=== PATIENT | female | born 1980 | race Caucasian/White ===

== ENCOUNTER 2016-03-15 08:23 | Emergency (ER) | payer OTHER ==
[~2016-03-15] VITALS: Ht 160 cm; Wt 136.1 kg
[2016-03-15 08:38] VITALS: BP 115/74
--- NOTE | 2016-03-15 08:57 | ED UPPER/LOWER EXTREMITY COMPL ---
History of Present Illness General Chief Complaint: Lower Extremity Problems Stated Complaint: LEG PAIN SWELLING AND PAIN Source: patient Exam Limitations: no limitations Vital Signs & Intake/Output Vital Signs & Intake/Output Vital Signs Date Time Temp Pulse Resp B/P Pulse O2 O2 Flow FiO2 Ox Delivery Rate 03/15 0838 97.4 82 20 115/74 98 Room Air Allergies Coded Allergies: NSAIDS (Non-Steroidal Anti-Inflamma (RASH 03/15/16) prochlorperazine (From COMPAZINE) ("DYSTONIC" 03/15/16) Reconcile Medications Albuterol Sulfate (Proair Hfa) 90 MCG HFA.AER.AD 2 PUF INH Q4-6 PRN PRN BREATHING (Reported) Budesonide/Formoterol Fumarate (Symbicort 160-4.5 Mcg Inhaler) 160 MCG-4.5 MCG/ ACTUATION HFA.AER.AD 2 PUF INH BID BREATHING PROBLEMS (Reported) Butalb/Acetaminophen/Caffeine (Dmqcwl-Jkigovbg-Gpll 50-325-40) 50 MG-325 MG-40 MG TABLET 1 TAB PO Q6-PRN PRN HEADACHE (Reported) Clonazepam 1 MG TABLET 1 TAB PO 4 TIMES/DAY ANXIETY (Reported) Cyclobenzaprine HCl 10 MG TABLET 1 TAB PO TID MUSCLE (Reported) Furosemide 20 MG TABLET 3 TAB PO DAILY WATER PILL (Reported) Lurasidone HCl (Latuda) 80 MG TABLET 1 TAB PO DAILY MENTAL HEALTH (Reported) Methadone Hydrochloride (Methadone HCl) 10 MG TABLET 4 TAB PO DAILY PAIN ( Reported) Methylprednisolone. (Medrol) 4 MG TAB.DS.PK 1 DP PO AD INFLAMMATION 6 on day 1 then reduce by one tablet daily until gone Metolazone 5 MG TABLET 1 TAB PO DAILY UNKNOWN (Reported) Nortriptyline HCl 25 MG CAPSULE 1 CAP PO BID UNKNOWN (Reported) Pantoprazole Sodium 40 MG TABLET.DR 1 TAB PO DAILY GI (Reported) Potassium Chloride 20 MEQ TAB.ER.PRT 1 TAB PO DAILY SUPPLEMENT (Reported) Pregabalin (Lyrica) 150 MG CAPSULE 1 CAP PO TID PAIN (Reported) Pregabalin (Lyrica) 150 MG CAPSULE 1 CAP PO TID NEUROPATHY Sofosbuvir/Velpatasvir (Epclusa 400 MG-100 MG Tablet) 400 MG-100 MG TABLET 1 TAB PO QPM HEP C (Reported) Topiramate 100 MG TABLET 1 TAB PO TID HEADACHE (Reported) Tramadol HCl 50 MG TABLET 1 TAB PO Q6-PRN PRN PAIN (Reported) Vortioxetine Hydrobromide (Trintellix) 5 MG TABLET 2 TAB PO DAILY MOOD STABILITY (Reported) Triage Note: PT TO ED C/O LEFT LEG SWELLING AND PAIN X 2 DAYS. PT HAS A SCHEDULED U/S AT [place] THIS AFTERNOON, PT STATES THE PAIN WAS UNBEARABLE AND COULD NOT WAIT. H/O DVT IN THE PAST. Triage Nurses Notes Reviewed? yes Onset: Gradual Duration: getting worse Timing: recent history Severity: severe Severity Numbers: 8 : No Patient currently breastfeeds: No HPI: Patient is a 35-year-old female with past medical history of DVT to the left lower extremity, chronic back pain with multiple fusion CURRENTLY ON METHADONE, anxiety depression who presents emergent with a 3 day history of gradual onset of left lower extremity below the hip to the ankle pain and swelling. Patient denies any mechanism of injury. Patient states the symptoms feel very similar to previous DVT. Denies any chest pain arm pain jaw pain fever chills hemoptysis shortness of breath cough Patient was to receive an ultrasound scheduled at 2 PM today however she states that the pain was unbearable (YONI NICHOLSON) Past History Travel History Traveled to [place] past 21 day No Medical History Any Pertinent Medical History? see below for history Neurological: migraine Hepatic: hepatitis C Blood Disorders: DVT Surgical History Surgical History: non-contributory Psychosocial History What is your primary language Bulgarian Tobacco Use: Current Daily Use Daily Tobacco Use Amount/Type: =< 4 Cigarettes daily ETOH Use: denies use Illicit Drug Use: denies illicit drug use Family History Hx Contributory? No (YONI NICHOLSON) Review of Systems Review of Systems Constitutional: Reports: no symptoms. EENTM: Reports: no symptoms. Respiratory: Reports: no symptoms. Cardiovascular: Reports: see HPI, peripheral edema. Gastrointestinal/Abdominal: Reports: no symptoms. Genitourinary: Reports: no symptoms. Musculoskeletal: Reports: see HPI. Skin: Reports: no symptoms. Neurological/Psychological: Reports: no symptoms. Hematologic/Endocrine: Reports: no symptoms. Immunological: Reports: no symptoms. All Other Systems: Reviewed and Negative (YONI NICHOLSON) Physical Exam Physical Exam General Appearance: no apparent distress, obese Neurologic/Tendon: normal sensation, normal motor functions, normal tendon functions, responds to pain, no evidence tendon injury Skin: intact, normal color, warm/dry Comments: Well-developed well-nourished person in no acute distress HEENT: Normal EENT exam, Neck: Supple, no lymphadenopathy, normal range of motion without pain or tenderness Back:no CVA tenderness. Cardiovascular: Regular rate and rhythms no murmurs rubs or gallops, normal JVP Respiratory: Chest nontender. No respiratory distress.breath sounds clear to auscultation bilaterally Abdomen: Soft, nontender nondistended, no appreciable organomegaly. Normal bowel sounds. No ascites Extremity: No edema, MILD LEFT calf tenderness to palpation, normal and equal pulses. Bilateral lower extremity dermatomes intact Pedal pulse +2 Neuro: Alert oriented x3, motor sensory normal, Skin: No appreciable rash on exposed skin, skin is warm and dry. Psych: Mood and affect is normal, memory and judgment is normal. (EDILMA CARRION,YONI) Progress Differential Diagnosis: arterial insufficiency, cellulitis, CHF, compartment syndrome, contusion, dislocation, DVT, fracture, gout, septic arthritis, sprain, tendon injury, LOW BACK PAIN LUMBAR RADICULOPATHY Plan of Care: Orders Procedure Date/time Status Durable Medical Equipment 03/15 1142 Active Durable Medical Equipment 03/15 1129 Active Add-on Test (ER Only) 03/15 0858 Active URINE DRUGS OF ABUSE 03/15 0842 Complete URINE 03/15 0842 Complete Laboratory Tests 03/15/16 0843: Urine Test NEGATIVE 03/15/16 0842: Urine Opiates Screen < 100.00, Methadone Screen 379 H, Barbiturate Screen < 60, Ur Phencyclidine Scrn 6.20, Amphetamines Screen < 100, U Benzodiazepines Scrn < 85, Urine Cocaine Screen < 50, Urine Cannabis Screen < 5.00 Patient currently is in no apparent distress. Patient's bilateral lower extremities were neurovascularly intact. No signs of arterial compromise. Patient has no symptoms at this time of PE 03/15/2016 10:22:33 AM-patient currently states that she had no improvement of pain however still in no apparent distress. Ultrasound still is pending Ultrasound was negative for concerns of DVT. There are no concerns of pulmonary embolism. Due to history of present illness and exam findings patient is likely had lumbar radiculopathy. Patient's lower extremity was neurovascularly intact. Patient had normal steady gait on discharge. Patient was strongly advised to begin snev-loh-zmukzct pain medications and continue with methadone and was given steroids and follow-up with primary care doctor. Patient had requested refills of Lyrica which was administered. Patient was offered crutches however declined. Patient requested a psychiatry referral which one was given. (YONI NICHOLSON) Diagnostic Imaging: Viewed by Me: Ultrasound. Comments: PATIENT: EBONY MARC PRESENT AGE: 35 PATIENT ACCOUNT NO: [id number] : 79 LOCATION: [facility] ORDERING PHYSICIAN: YONI CARRION SERVICE DATE: 03/15/16 EXAM TYPE: US - US-UNILATERAL VENOUS DOPPLER EXAMINATION: US TRIPLEX LOWER EXTREMITY, LEFT CLINICAL INFORMATION: Left leg swelling and pain COMPARISON: None. TECHNIQUE: Color-flow triplex imaging with spectral analysis and compression Doppler were performed on the left lower extremity. FINDINGS: Due to patient body habitus, compression evaluation of the lower femoral vein could not be adequately performed; Doppler evaluation demonstrates patency within the vessel. Otherwise, respiratory variation, normal compression and augmented flow are noted throughout the lower extremity. The visualized common femoral vein, superficial femoral vein, profunda femoral vein, popliteal vein and midcalf peroneal and posterior tibial venous segments show no evidence of deep venous thrombosis. There is no Ambrose's cyst. IMPRESSION: No evidence of deep venous thrombosis involving the left lower extremity. (YONI NICHOLSON) Departure Departure Disposition: HOME OR SELF CARE Condition: Stable Clinical Impression Primary Impression: Lumbar radiculopathy Secondary Impressions: Left leg pain Referrals: BEA VIDAL APRN (PCP/Family) Additional Instructions: As discussed begin the prescription of Medrol Dosepak as directed for inflammation. Continue home medications as directed. Begin the prescription OF LYRICA. If symptoms worsen return to emergency room. Follow-up with your primary care doctor on Saturday if no better. If symptoms worsen or IF YOU develop a new concerning symptom return to emergency room. Please follow up and establish a new psychiatrist from the list of referral given to the emergency room. Begin using crutches until he can walk without pain. Departure Forms: Customer Survey General Discharge Information Prescriptions: Current Visit Scripts Methylprednisolone. (Medrol) 1 DP PO AD #1 DP 6 on day 1 then reduce by one tablet daily until gone Pregabalin (Lyrica) 1 CAP PO TID #42 CAP (YONI NICHOLSON) PA/COMPUTER BOOKKEEPER Co-Sign Statement Statement: ED Attending supervision documentation- [] I saw and evaluated the patient. I have also reviewed all the pertinent lab results and diagnostic results. I agree with the findings and the plan of care as documented in the PA's/COMPUTER BOOKKEEPER's documentation. [X] I have reviewed the ED Record and agree with the PA's/COMPUTER BOOKKEEPER's documentation. [] Additions or exceptions (if any) to the PAs/COMPUTER BOOKKEEPER's note and plan are summarized below: [] (TIM CORREA DO)
[2016-03-15] MEDS ORDERED: METHADONE HCL10 M1 PO (09:51)
[2016-03-15] MEDS ORDERED: TRINTELLIX5 MG PO (09:52)
[2016-03-15] MEDS ORDERED: PROAIR HFA8.5 GM INH (09:52)
[2016-03-15] MEDS ORDERED: CYCLOBENZAPRINE10 M1 PO (09:53)
[2016-03-15] MEDS ORDERED: METOLAZONE5 M1 PO (09:53)
[2016-03-15] MEDS ORDERED: EPCLUSA 400 MG1 EACH PO (09:53)
[2016-03-15] MEDS ORDERED: FUROSEMIDE20 M1 PO (09:54)
[2016-03-15] MEDS ORDERED: POTASSIUM CHLO20 ME2 PO (09:54)
[2016-03-15] MEDS ORDERED: TRAMADOL HCL50 M1 PO (09:55)
[2016-03-15] MEDS ORDERED: SYMBICORT 16010.2 GM INH (09:55)
[2016-03-15] MEDS ORDERED: LYRICA150 M1 PO ×2 (09:55→11:28)
[2016-03-15] MEDS ORDERED: PANTOPRAZOLE SO40 M1 PO (09:56)
[2016-03-15] MEDS ORDERED: NORTRIPTYLINE H25 M2 PO (09:56)
[2016-03-15] MEDS ORDERED: BUTALB-ACETAMI1 EACH PO (09:56)
[2016-03-15] MEDS ORDERED: LATUDA80 M1 PO (09:57)
[2016-03-15] MEDS ORDERED: TOPIRAMATE100 M2 PO (09:58)
[2016-03-15] MEDS ORDERED: CLONAZEPAM1 M2 PO (09:58)
--- NOTE | 2016-03-15 11:22 | ULTRASOUND REPORT ---
EXAMINATION: US TRIPLEX LOWER EXTREMITY, LEFT CLINICAL INFORMATION: Left leg swelling and pain COMPARISON: None. TECHNIQUE: Color-flow triplex imaging with spectral analysis and compression Doppler were performed on the left lower extremity. FINDINGS: Due to patient body habitus, compression evaluation of the lower femoral vein could not be adequately performed; Doppler evaluation demonstrates patency within the vessel. Otherwise, respiratory variation, normal compression and augmented flow are noted throughout the lower extremity. The visualized common femoral vein, superficial femoral vein, profunda femoral vein, popliteal vein and midcalf peroneal and posterior tibial venous segments show no evidence of deep venous thrombosis. There is no Ambrose's cyst. IMPRESSION: No evidence of deep venous thrombosis involving the left lower extremity.
[2016-03-15] MEDS ORDERED: MEDROL4 M2 PO (11:28)
== END 2016-03-15 11:45 ==
LOC: ERH 08:23
DX: M54.16 Radiculopathy, lumbar region (principal); M79.605 Pain in left leg
CPT/HCPCS: 80307; 81025

== ENCOUNTER 2016-05-18 14:01 | Inpatient (IN) | payer OTHER ==
[~2016-05-18] VITALS: Ht 160 cm; Wt 131.2 kg
[~2016-05-18 14:01] MED LIST: BUTALB-ACETAMI1 EACH PO; CLONAZEPAM1 M2 PO; CYCLOBENZAPRINE10 M1 PO; EPCLUSA 400 MG1 EACH PO; FUROSEMIDE20 M1 PO; LATUDA80 M1 PO; LYRICA150 M1 PO; MEDROL4 M2 PO; METHADONE HCL10 M1 PO; METOLAZONE5 M1 PO; NORTRIPTYLINE H25 M2 PO; PANTOPRAZOLE SO40 M1 PO; POTASSIUM CHLO20 ME2 PO; PROAIR HFA8.5 GM INH; SYMBICORT 16010.2 GM INH; TOPIRAMATE100 M2 PO; TRAMADOL HCL50 M1 PO; TRINTELLIX5 MG PO
--- NOTE | 2016-05-18 14:14 | NUR ---
35 Y/O FEMALE TAKEN TO ROOM 17 FROM [facility]. PT SLEPEY THOUGH ANSWERS QUESTIONS APPROPRIATELY, ORIENTED X 4. ADMITS TO USING 4 BAGS HEROIN "A FEW HOURS AGO". DENIES SI/HI - "NO I DEFINATELY WAS NOT TRYING TO HURT MYSELF. I JUST USED TOO MUCH". FIANCE ADMINISTERED NARCAN X 2 DOSES. PT DENIES COMPLAINTS. ALSO ON METHADONE, GOT DOSE TODAY (40MG). CHANGED IN BLUE SCRUBS. CALM/COOPERATIVE.
--- NOTE | 2016-05-18 14:19 | NUR ---
TRIAGE NOTE ACKNOWLEDGED AND RN CARE ASSUMED PT BOUGHT TO ROOM # 17 AND CHANGED INTO [facility] GOWN 2 BAGS OF PERSONAL BELONGINGS COLLECTED AND PLACED IN CLOSET BY DOBBY LOOM WEAVER. FAMILY ASSUMING RESPONSIBILITY FOR ALL VALUABLES. PT WAITING TO BE EVALUATED.
--- NOTE | 2016-05-18 14:22 | NUR ---
POT ANNEALER PRISCA BELONGINGS. 2 BAGS PLACED IN CLOSET. JAD ASSUMING RESPONSILIBITY FOR PURSE AND ALL CONTENTS. PT HAS PROVIDED CONSENT FOR SAME. JAD AWARE HE IS NOT TO LEAVE PURSE IN ROOM WITH PT.
--- NOTE | 2016-05-18 14:41 | NUR ---
PT EVALUATED BY DR PRIETO
--- NOTE | 2016-05-18 14:45 | ED PSYCHIATRIC COMPLAINT ---
History of Present Illness General Chief Complaint: ETOH/Drug Related Complaint Stated Complaint: OVERDOSE ON HEROIN Source: friend Exam Limitations: clinical condition Vital Signs & Intake/Output Vital Signs & Intake/Output ED Intake and Output 05/21 0000 05/20 1200 Intake Total 800 260 Output Total Balance 800 260 Intake, IV 20 Intake, Oral 800 240 Allergies Coded Allergies: NSAIDS (Non-Steroidal Anti-Inflamma (RASH 03/15/16) prochlorperazine (From COMPAZINE) ("DYSTONIC" 03/15/16) Reconcile Medications Albuterol Sulfate (Proair Hfa) 90 MCG HFA.AER.AD 2 PUF INH Q4-6 PRN PRN BREATHING (Reported) Budesonide/Formoterol Fumarate (Symbicort 160-4.5 Mcg Inhaler) 160 MCG-4.5 MCG/ ACTUATION HFA.AER.AD 2 PUF INH BID BREATHING PROBLEMS (Reported) Butalb/Acetaminophen/Caffeine (Lshucr-Huunobpj-Mrep 50-325-40) 50 MG-325 MG-40 MG TABLET 1 TAB PO Q6-PRN PRN HEADACHE (Reported) Clonazepam 1 MG TABLET 1 TAB PO 4 TIMES/DAY ANXIETY (Reported) Cyclobenzaprine HCl 10 MG TABLET 1 TAB PO TID MUSCLE (Reported) Furosemide 20 MG TABLET 3 TAB PO DAILY WATER PILL (Reported) Lurasidone HCl (Latuda) 80 MG TABLET 1 TAB PO DAILY MENTAL HEALTH (Reported) Methadone Hydrochloride (Methadone HCl) 10 MG TABLET 4 TAB PO DAILY PAIN ( Reported) Methylprednisolone. (Medrol) 4 MG TAB.DS.PK 1 DP PO AD INFLAMMATION 6 on day 1 then reduce by one tablet daily until gone Metolazone 5 MG TABLET 1 TAB PO DAILY UNKNOWN (Reported) Nortriptyline HCl 25 MG CAPSULE 1 CAP PO BID UNKNOWN (Reported) Pantoprazole Sodium 40 MG TABLET.DR 1 TAB PO DAILY GI (Reported) Potassium Chloride 20 MEQ TAB.ER.PRT 1 TAB PO DAILY SUPPLEMENT (Reported) Pregabalin (Lyrica) 150 MG CAPSULE 1 CAP PO TID PAIN (Reported) Pregabalin (Lyrica) 150 MG CAPSULE 1 CAP PO TID NEUROPATHY Sofosbuvir/Velpatasvir (Epclusa 400 MG-100 MG Tablet) 400 MG-100 MG TABLET 1 TAB PO QPM HEP C (Reported) Topiramate 100 MG TABLET 1 TAB PO TID HEADACHE (Reported) Tramadol HCl 50 MG TABLET 1 TAB PO Q6-PRN PRN PAIN (Reported) Vortioxetine Hydrobromide (Trintellix) 5 MG TABLET 2 TAB PO DAILY MOOD STABILITY (Reported) Triage Note: 35 Y/O FEMALE TAKEN TO ROOM 17 FROM [facility]. PT SLEPEY THOUGH ANSWERS QUESTIONS APPROPRIATELY, ORIENTED X 4. ADMITS TO USING 4 BAGS HEROIN "A FEW HOURS AGO". DENIES SI/HI - "NO I DEFINATELY WAS NOT TRYING TO HURT MYSELF. I JUST USED TOO MUCH". JAD ADMINISTERED NARCAN X 2 DOSES. PT DENIES COMPLAINTS. ALSO ON METHADONE, GOT DOSE TODAY (40MG). CHANGED IN BLUE SCRUBS. CALM/COOPERATIVE. Triage Nurses Notes Reviewed? yes Onset: Abrupt Duration: just prior to arrival Timing: single episode today Severity: severe : No Patient currently breastfeeds: No HPI: 35 year old female on chronic methadone maintenance who presents to the ED via EMS for reported overdose with heroin. According to her BF she used 4 bags of heroin and then became unresponsive. He administered two doses of narcan with her needle and then called EMS. He reports she has been clean for a "long time " and does not think she was trying to hurt herself. Past History Travel History Traveled to [place] past 21 day No Medical History Any Pertinent Medical History? see below for history Neurological: migraine EENT: NONE Cardiovascular: NONE Respiratory: NONE Gastrointestinal: NONE Hepatic: hepatitis C Renal: NONE Musculoskeletal: chronic back pain Psychiatric: PTSD, H/O OPIATE ABUSE Endocrine: NONE Blood Disorders: DVT Cancer(s): NONE Surgical History Surgical History: unobtainable Psychosocial History What is your primary language Serbian Tobacco Use: Current Daily Use Daily Tobacco Use Amount/Type: => 5 Cigarettes daily Illicit Drug Use: heroin Family History Hx Contributory? No Review of Systems Review of Systems Constitutional: Reports: see HPI (UNABLE TO OBTAIN). Physical Exam Physical Exam General Appearance: moderate distress, severe distress, obese, LETHARGIC Head: atraumatic, normal appearance Eyes: Bilateral: other (PINPOINT PUPILS). Ears, Nose, Throat: MOIST MEMBRANES Neck: normal inspection Respiratory: chest non-tender, decreased breath sounds Cardiovascular: regular rate/rhythm Gastrointestinal: soft, non-tender, OBESE Extremities: NO EVIDENCE OF INJURY Neurological/Psychiatric: LETHARGIC, AROUSABLE TO PAINFUL STIMULI AND TO LOUD VERBAL STIMULI Appearance/Memory/Insight: disheveled Behavoir/Eye Contact/Speech: UNABLE SECONADRY TO CLINICAL CONDITION Thoughts/Hallucinations: UNABLE TO ASSESS Skin: intact, normal color, warm/dry SAD PERSONS Done? unobtained due to conditi Progress Differential Diagnosis: NARCOTIC OVERDOSE, BENZO OVERDOSE, POLYSUBSTANCE ABUSE, CHRONIC METHADONE MAINTENANCE Plan of Care: Orders Procedure Date/time Status LACTIC ACID 05/18 1808 Active Ba, Insertion/Removal/Asses 05/18 1558 Active CULTURE,URINE 05/18 1558 Active Straight Cath 05/18 1556 Complete Add-on Test (ER Only) 05/18 1538 Active ARTERIAL BLOOD GAS (GEN) 05/18 1521 Active EKG 05/18 1521 Active TROPONIN LEVEL 05/18 1508 Active LACTIC ACID 05/18 1508 Active HUMAN BETA HCG SCREEN 05/18 1508 Active ETHANOL 05/18 1508 Active COMPREHENSIVE METABOLIC PANEL 05/18 1508 Active CBC WITHOUT DIFFERENTIAL 05/18 1508 Active URINE DRUGS OF ABUSE 05/18 1426 Active URINE 05/18 1426 Active Current Medications Sig/Brenda Start time Last Medication Dose Stop Time Status Admin Naloxone HCl 4 MG Q24H 05/18 1530 AC (Narcan Drip 4MG/ 10ML) Sodium Chloride 1,000 ML (Normal Saline 0.9%) Laboratory Tests 05/18/16 1600: Sodium Pending, Potassium Pending, Chloride Pending, Carbon Dioxide Pending, Anion Gap Pending, BUN Pending, Creatinine Pending, BUN/Creatinine Ratio Pending , Glucose Pending, Lactic Acid Pending, Calcium Pending, Total Bilirubin Pending , AST Pending, ALT Pending, Alkaline Phosphatase Pending, Troponin I Pending, Total Protein Pending, Albumin Pending, Globulin Pending, Albumin/Globulin Ratio Pending, Total Beta HCG Pending, CBC w Diff Pending, WBC Pending, RBC Pending, Hgb Pending, Hct Pending, MCV Pending, MCH Pending, RDW Pending, Plt Count Pending, MPV Pending, PUBS MCHC Pending, Serum Alcohol Pending 05/18/16 1545: pH 7.34 L, pCO2 49 H, pO2 97, HCO3 26, ABG O2 Sat (Measured) 94.0 L, P-50 ( Temp Corrected) Y, Carboxyhemoglobin 2.6, O2 Concentration % 3L, Temperature 98.0, O2 Delivery Method N/C, Phlebotomy Draw Site LEFT RADIAL Microbiology 05/18 1557 URINE ROUT: Urine Culture - ORD Minimal response after several boluses of IV narcan. ABG shows mild CO2 retention. Narcan drip started. CXR negative. Patient will require ICU monitoring. (IDA MATAMOROS,YAYO) Diagnostic Imaging: Viewed by Me: Radiology Read. Discussed w/RAD: Radiology Read. CXR Impression: PATIENT: EBONY MARC PRESENT AGE: 35 PATIENT ACCOUNT NO: [id number] : 79 LOCATION: [facility] ORDERING PHYSICIAN: YAYO PRIETO MD SERVICE DATE: 05/18/16 EXAM TYPE: RAD - XRY -PORTABLE CHEST XRAY EXAMINATION: CHEST 1 VIEW CLINICAL INFORMATION: Hypoxia. COMPARISON: None. TECHNIQUE: An AP view of the chest is provided. FINDINGS: The cardiac silhouette is not enlarged. The mediastinal and hilar contours are unremarkable. There are neither pleural effusions nor pneumothoraces. There are no consolidations. The osseous structures are unremarkable. IMPRESSION: No evidence for acute disease. DICTATED BY: NIXON SEGUNDO MD DATE/TIME DICTATED:1531 QA DEVELOPER:ELIER DATE/TIME TRANSCRIBED:05/18/161531 CONFIDENTIAL, DO NOT COPY WITHOUT APPROPRIATE AUTHORIZATION. <Electronically signed in Other Vendor System> SIGNED BY: NIXON SEGUNDO MD 05/18/16 153 Initial ED EKG: NSR, BASELINE ARTIFACT, DIFFUSE T WAVE INVERSIONS Rhythm Strip: normal sinus rhythm Departure Departure Time of Disposition: 1620 Disposition: STILL A PATIENT Condition: Stable Clinical Impression Primary Impression: Opiate overdose Secondary Impressions: Cocaine abuse Referrals: BEA VIDAL APRN (PCP/Family) Departure Forms: Customer Survey General Discharge Information Admission Note Spoke With: UDAY MALDONADO MD Documentation of Exam: Documentation of any treatments & extenuating circumstances including Concerns Regarding Discharge (functional status, medication knowledge or non-compliance, living conditions, etc.) that warrant an admission rather than observation: [ SUPPLEMENTAL OXYGEN, IV NARCAN DRIP, IV FLUIDS, CURRENTLY NPO SECONDARY TO MENTAL STATUS, MONITOR I/O, MONITOR RESPIRATORY STATUS, CRISIS CONSULT WHEN MEDICALLY STABLE] Critical Care Note Critical Care Note Critical Care Time: 75-104 min
--- NOTE | 2016-05-18 15:04 | NUR ---
ASSUMED CARE OF PT PER [place] LO. PT IN WITH 4LNC 02 100%. WILL CONTINUE TO MONITOR. DR PRIETO IN FOR EVAL
--- NOTE | 2016-05-18 15:06 | NUR ---
20 G LINDSEY PLACED IN LAC. AGONAL RESPIRATIONS NOTED. PT MEDICATED DIRECTED BY DR PRIETO WITH 0.4 MG NARCAN IVP PT NOW AROUSABLE WITH IMPROVEMENT IN BREATHING. PT PLACED ON O2 VIA N/C AT 4 LPM. PT ENDORSED TO SHAHID CONRAD
--- NOTE | 2016-05-18 15:16 | NUR ---
UNABLE TO VERIFY HOME MEDS DUE TO CURRENT CIRCUMSTANCES
--- NOTE | 2016-05-18 15:19 | NUR ---
PT MEDICATED WITH 0.4MG NARCAN IV PER EMAR. PT STILL LETHARGIC.
--- NOTE | 2016-05-18 15:36 | RADIOLOGY REPORT ---
EXAMINATION: CHEST 1 VIEW CLINICAL INFORMATION: Hypoxia. COMPARISON: None. TECHNIQUE: An AP view of the chest is provided. FINDINGS: The cardiac silhouette is not enlarged. The mediastinal and hilar contours are unremarkable. There are neither pleural effusions nor pneumothoraces. There are no consolidations. The osseous structures are unremarkable. IMPRESSION: No evidence for acute disease.
--- NOTE | 2016-05-18 15:37 | NUR ---
RT IN RM FOR ABG
[2016-05-18 16:08] LABS: ABSOLUTE BASOPHIL COUNT 0 /CUMM (0.0-0.2); ABSOLUTE EOSINOPHIL COUNT 0.1 /CUMM (0.0-0.7); ABSOLUTE GRANULOCYTE CT 12.7 /CUMM (1.4-6.5); ABSOLUTE LYMPH COUNT 1.4 /CUMM (1.2-3.4); BASOPHIL % 0.2 % (0.0-2.0); EOSINOPHIL % 0.6 % (0-5); GRANULOCYTE % 83.3 % (42.2-75.2); MEAN CORPUSCULAR HGB 26.6 PG (27.0-31.0); MEAN CORPUSCULAR HGB CONC 32.4 G/DL (33.0-37.0); MEAN CORPUSCULAR VOLUME 82.1 FL (81.0-99.0); PLATELET COUNT 289 /CUMM (130-400); RBC DISTRIBUTION WIDTH 15.5 % (11.5-14.5); RED BLOOD CELL CT 4.75 /CUMM (4.20-5.40); WHITE BLOOD CELL COUNT 15.2 /CUMM (4.8-10.8)
--- NOTE | 2016-05-18 16:09 | NUR ---
PT MEDICATED WITH 3RD 04.MG BOLUS DOSE OF NARCAN IV WITH MINIMAL CHANGE, PT STILL LETHARGIC, DR PRIETO INFORMED, THIS RN WILL SPEAK WITH DR PRIETO ABOUT STARTING DOSE OF NARCAN DRIP.
--- NOTE | 2016-05-18 16:20 | NUR ---
THIS RN STARTED 4MG NARCAN DRIP TITRATION FOR OPIOID INTOXICATION AT 0.8MG/HR PER DR PRIETO. PTS VANDANA SCORE OF 3.
--- NOTE | 2016-05-18 16:23 | NUR ---
THIS RN CHECKED ON PT, VSS, RR OF 12, DRIP INCREASED BY 0.1MG ACCORDING TO ADMITTING DR. MALDONADO. DRIP 0.9MG/HR OF NARCAN INFUSING. VANDANA SCORE 3.
--- NOTE | 2016-05-18 16:26 | NUR ---
ACCORDING TO NARCAN TITRATION FOR OPIOD INTOXICATION PT SHOULD BE REEVAULATED EVERY 2-3 MINUTES WITH AN INCREASE OF 0.1MG/HR UNTIL PTS VANDANA SCORE BECOMES A 4. PTS NARCAN DRIP DOSING IS 1.0MG/HR WITH A VANDANA SCORE OF 3.
--- NOTE | 2016-05-18 16:46 | NUR ---
PER DR MALDONADO, PTS DRIP SHOULD BE TITRATED EVERY 15MINS FOR EVALUATION. PTS VANDANA SCORE OF 3. DRIP DOSING INCREASED TO 1.1MG /HR, PTS VANDANA SCORE A 4, HOUSE STAFF INFORMED AND IN RM FOR EVAL PT. PT YELLING AT HOUSE STAFF SAYING "TYLENOL ISNT GOING TO WORK I WANT MY METHADONE". HOUSE STAFF RESIDENT MERRITT INFORMED THAT PTS VANDANA SCORE OF 4 AND THIS RN WILL NOW LEAVE DRIP DOSING AT 1.1MG/HR AT A RATE OF 275ML/HR.
--- NOTE | 2016-05-18 16:50 | NUR ---
CALVILLO INSERTED 16FR, 300ML OUTPUT OF CLEAR YELLOW URINE. URINE TRIO SENT TO LAB
--- NOTE | 2016-05-18 17:00 | History & Physical ---
MERRITT WHEAT 05/18/16 0920: General Information and HPI MD Statement: I have seen and personally examined EBONY MARC and documented this H&P. The patient is a 35 year old F who presented with a patient stated chief complaint of [polysubstance abuse and overdose]. Source of Information: patient, EMS Exam Limitations: unable to give history, clinical condition, confusion History of Present Illness: 35-year-old woman was brought in by ambulance after she was found to be unresponsive. This is a 35-year-old woman with significant history of poorly substance abuse, on methadone program. Due to her clinical condition patient is not able to provide any detail about the incident. Most of the HPI was obtained from the ED physician the story that was given by patient's boyfriend. According to patient's boyfriend patient remained sober from Heroin for 1 year or so. Patient used 4 bags of heroine and 2 tabs of clonazepam. According to boyfriend she became mentally altered, confused, developed difficulty breathing and eventually become obtunded and unresponsive. Boyfriend gave HER-2 boluses of IV Narcan and filled however she remained unresponsive and was transferred to the emergency room. According to ED physician upon presentation patient had respiratory failure, pinpoint nonreactive pupils she was considered confused and nonresponsive to verbal and painful stimulus. Patient was a started on Narcan drip after receiving 4 boluses of Narcan in the emergency room. Patient's mentation and respiration restored, and acceptable level, during the search of staying in the emergency room patient's vital signs remained stable patient did not require any life support including intubation ventilation or central line vasopressor. Lab values, WBC 15.2 left shift no bandemia. Blood gas 7.34/49/ 26. Toxicology screen is pending. Biochemical panel is pending. Chest x-ray did not show any acute polmonary pathology. 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 Lives with her boyfriend. Details of her social life is not clear. According to ED documentation patient clearly mentioned that she had no intention to hurt herself. Allergies/Medications Allergies: Coded Allergies: NSAIDS (Non-Steroidal Anti-Inflamma (RASH 03/15/16) prochlorperazine (From COMPAZINE) ("DYSTONIC" 03/15/16) Home Med list Albuterol Sulfate (Proair Hfa) 90 MCG HFA.AER.AD 2 PUF INH Q4-6 PRN PRN BREATHING (Reported) Budesonide/Formoterol Fumarate (Symbicort 160-4.5 Mcg Inhaler) 160 MCG-4.5 MCG/ ACTUATION HFA.AER.AD 2 PUF INH BID BREATHING PROBLEMS (Reported) Butalb/Acetaminophen/Caffeine (Tjpprx-Kdrfdstb-Zdiz 50-325-40) 50 MG-325 MG-40 MG TABLET 1 TAB PO Q6-PRN PRN HEADACHE (Reported) Clonazepam 1 MG TABLET 1 TAB PO 4 TIMES/DAY ANXIETY (Reported) Cyclobenzaprine HCl 10 MG TABLET 1 TAB PO TID MUSCLE (Reported) Furosemide 20 MG TABLET 3 TAB PO DAILY WATER PILL (Reported) Lurasidone HCl (Latuda) 80 MG TABLET 1 TAB PO DAILY MENTAL HEALTH (Reported) Methadone Hydrochloride (Methadone HCl) 10 MG TABLET 4 TAB PO DAILY PAIN ( Reported) Methylprednisolone. (Medrol) 4 MG TAB.DS.PK 1 DP PO AD INFLAMMATION 6 on day 1 then reduce by one tablet daily until gone Metolazone 5 MG TABLET 1 TAB PO DAILY UNKNOWN (Reported) Nortriptyline HCl 25 MG CAPSULE 1 CAP PO BID UNKNOWN (Reported) Pantoprazole Sodium 40 MG TABLET.DR 1 TAB PO DAILY GI (Reported) Potassium Chloride 20 MEQ TAB.ER.PRT 1 TAB PO DAILY SUPPLEMENT (Reported) Pregabalin (Lyrica) 150 MG CAPSULE 1 CAP PO TID PAIN (Reported) Pregabalin (Lyrica) 150 MG CAPSULE 1 CAP PO TID NEUROPATHY Sofosbuvir/Velpatasvir (Epclusa 400 MG-100 MG Tablet) 400 MG-100 MG TABLET 1 TAB PO QPM HEP C (Reported) Topiramate 100 MG TABLET 1 TAB PO TID HEADACHE (Reported) Tramadol HCl 50 MG TABLET 1 TAB PO Q6-PRN PRN PAIN (Reported) Vortioxetine Hydrobromide (Trintellix) 5 MG TABLET 2 TAB PO DAILY MOOD STABILITY (Reported) Compliance With Home Meds: UNKNOWN Past History Travel History Traveled to [place] past 21 day No Medical History Any Pertinent Medical History? unobtainable Neurological: migraine EENT: NONE Cardiovascular: NONE Respiratory: NONE Gastrointestinal: NONE Hepatic: hepatitis C Renal: NONE Musculoskeletal: NONE Psychiatric: NONE Endocrine: NONE Blood Disorders: DVT Cancer(s): NONE Surgical History Surgical History: non-contributory Past Family/Social History Psychosocial History Past Psychosocial History Unobtainable at this time Living Will? unknown Functional Ability ADLs Independent: dressing, eating, toileting, bathing. Ambulation: independent IADLs Independent: shopping, housework, finances, food prep, telephone, transportation , medication admin. Review of Systems Review of Systems Constitutional: Reports: see HPI. EENTM: Reports: see HPI, eye pain. Cardiovascular: Reports: no symptoms. Respiratory: Reports: see HPI. All Other Systems: Reviewed and Negative Exam & Diagnostic Data Last 24 Hrs of Vital Signs/I&O Vital Signs Date Time Temp Pulse Resp B/P Pulse O2 O2 Flow FiO2 Ox Delivery Rate 05/18 1706 97.8 78 22 160/79 100 Nasal 2.0L Cannula 05/18 1651 81 14 161/85 100 Nasal Cannula 05/18 1629 97.8 77 14 146/83 100 Nasal 3.0L Cannula 05/18 1614 82 20 143/80 100 Nasal 2.0L Cannula 05/18 1509 97.4 91 18 130/71 100 Nasal 3.0L Cannula 05/18 1410 101 14 138/62 94 Room Air Intake & Output 05/18 1600 05/18 0800 05/18 0000 Intake Total Output Total Balance Patient 250 lb Weight Physical Exam General Appearance Alert, Mild Distress, drowsy but arousable, uncooperative Skin No Breakdown HEENT Atraumatic Neck Supple, No JVD Lymphatic Axillary nl, Cervical nl Cardiovascular Normal S1, Normal S2, No Murmurs Lungs limited study; normal air movement Abdomen Soft Neurological slightly slurred speech but coherent and understandable, follows verbal commands, drowsy but arousable his Patrick to her name and pain Extremities bilateral 1+ pitting edema Last 24 Hrs of Labs/Jay: Laboratory Tests 05/18/16 1645: Methadone Screen Pending, Barbiturate Screen Pending, Ur Phencyclidine Scrn Pending, Amphetamines Screen Pending, U Benzodiazepines Scrn Pending, Urine Cocaine Screen Pending, Urine Cannabis Screen Pending, Urine Test NEGATIVE 05/18/16 1600: Anion Gap 12, Estimated GFR > 60, BUN/Creatinine Ratio 10.0, Glucose 88, Lactic Acid 1.9, Calcium 9.2, Total Bilirubin 0.4, AST 100 H, ALT 115 H, Alkaline Phosphatase 100, Creatine Kinase Pending, Troponin I 0.12 *H, Total Protein 7.5, Albumin 4.4, Globulin 3.1, Albumin/Globulin Ratio 1.4, Total Beta HCG NEGATIVE, CBC w Diff MAN DIFF ORDERED, RBC 4.75, MCV 82.1, MCH 26.6 L, RDW 15.5 H, MPV 9.0, Gran % 83.3 H, Lymphocytes % 9.3 L, Monocytes % 6.6, Eosinophils % 0.6, Basophils % 0.2, Absolute Granulocytes 12.7 H, Absolute Lymphocytes 1.4, Absolute Monocytes 1.0 H, Absolute Eosinophils 0.1, Absolute Basophils 0, Platelet Estimate ADEQUATE, Poikilocytosis 2+, Stomatocytes 2+, PUBS MCHC 32.4 L, Serum Alcohol < 10.0 05/18/16 1545: pH 7.34 L, pCO2 49 H, pO2 97, HCO3 26, ABG O2 Sat (Measured) 94.0 L, P-50 ( Temp Corrected) Y, Carboxyhemoglobin 2.6, O2 Concentration % 3L, Temperature 98.0, O2 Delivery Method N/C, Phlebotomy Draw Site LEFT RADIAL Microbiology 05/18 1645 URINE ROUT: Urine Culture - RECD Diagnostic Data EKG Results Tachycardia Sinus No axis deviation No acute ST-T segment change No QT change CXR Results No pathology Assessment/Plan Assessment: 35-year-old woman with significant drug and psychologic history was admitted for polysubstance abuse and overdose. Urine toxicology is pending BEP: AST and ALT 100 and 115, alkaline phosphatase normal. Elevated troponin 0.12 List of active problems #1 polysubstance overdose * Admit to ICU * Check neuro every 4 * Nothing by mouth * Aspiration precaution; fall precaution; no bathroom privilege * Mild IV hydration with 50-75 mL/h normal saline * Follow U tox positive for opiates and positive for benzo and positive for cocaine * Check vitals every; close monitor for withdrawal symptoms * Continue Narcan drip * Check CIWA Q1 * Ativan 2 mg every treated by CIWA score * She cannot leave AMA * Psych eval in the morning * If patient became hypertensive consider using CCB ( diltiazem; vasospastic nature of coccaine) * If patient developed symptoms of Opioid withdrawl consider clonidine 0.1-0.3 mg q1 clonidine and repeat as needed to reverse the symptoms #2 Leukocytosis with left shift or bandemia stable vital signs (afebrile). Chest x-ray did not show any evidence of pneumonia or aspiration (pneumonitis. * Hydration * Watch off antibiotics if patient spikes fevers or starts desaturating and blood cultures and started patient on IV Unasyn probably 3000 mL every 8 aspiration pneumonia * Repeat labs in the a.m. #3 Elevated troponin: Demand ischemia versus non-ST elevated myocardial infarction. In the setting of overdose and respiratory failure, it is possible, that patient has exerted her heart however patient is morbidly obese and and her medical care is not known ( smoke ?? and FH ??) Setting none ST elevation myocardial infarction cannot be ruled out. Urine toxicology positive for cocaine increase the chance of cocaine associated myocardial ischemia, or cocaine induce coronary artery vasoconstriction. * Continuous telemetry monitoring possibility of arrhythmia * Trending troponin every 6 hours * Avoids beta blockers-worsening cocaine toxicity * If patient became severely hypertensive starts use CC blockers preferably Diltiazem * Aspirin 300 mg once * no heparin at this time- Verbally was discussed with Dr. Amanda Marrero MD * use nitrate patch for chest pain * calcium channel blockers (superior due to vaso-spastic nature of Coccaine) or alpha blockers for hypertension; avoid Bblockers at least before premedicating with alpha blockers * O2 supp and maintain O2% above 92% #4 Abnormal LFTs * Obtain abdominal ultrasound when patient is established #5 Hx of using INH with diagnosis of COPD- OHS and DIANA and possible COPD by examination and Hx. * DueNeb Q4 as needed #6 slight increase in CK; no renal failure; possibly due to Coccain-induced rhabdo and dehydrayion * Started on diet * Continue gentle hydration DVT prophylaxis-heparin 5000 units every 8 Pain-IV Tylenol, Avoid narcotics, Avoid NSAID FC-needs reevaluation As Ranked By This Provider Problem List: 1. Opiate overdose 2. NSTEMI (non-ST elevated myocardial infarction) Core Measures/Miscellaneous Acute Coronary Syndrome ACS Diagnosis: No Cerebrovascular Accident CVA/TIA Diagnosis: No Congestive Heart Failure CHF Diagnosis: No Venous Thromboembolism VTE Risk Factors: Acute medical illness, Age > 40, Obesity [facility] prophylaxis d/t: No contraindications No VTE Pharm Prophylaxis d/t: No contraindications VTE Diagnosis: No VTE Type: NONE VTE Confirmed by (Test): NONE Severe Sepsis Severe Sepsis Present: No Septic Shock Septic Shock Present: No Miscellaneous Documentation Attending Case Discussed With: UDAY MALDONADO MD Primary Care Physician: BEA VIDAL APRN Patient sees these Specialists ED specialist and Hospitalist Level of Patient Care: Critical Care (CRI) Consults Needed: Consulting Specialty: Critical Care Resident Review Statement Resident Statement: examined this patient, discussed with sports management internship, agreed with sports management internship, discussed with family, reviewed EMR data (avail), discussed with nursing , discussed with case mgmt, reviewed images, amended to note UDAY MALDONADO MD 05/19/16 1555: Attending MD Review Statement Attending Statement Attending MD Statement: examined this patient, discuss w/resident/PA/CUSTOMER EXPERIENCE MANAGER, agreed w/resident/PA/CUSTOMER EXPERIENCE MANAGER, reviewed EMR data (avail) Attending Assessment/Plan: 35F PMH morbid obesity, polysubstance abuse, 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 Course complicated by elevated troponin in the setting of demand ischemia. Initially unresponsive and unable to give history. Stable vitals, labs reviewed. Plan - Admit to ICU - Continue Narcan drip - Gentle IV hydration - Ativan per CIWA - Neuro checks - Stop all home medications - Follow up urine toxicology - DVT PPx
--- NOTE | 2016-05-18 17:11 | NUR ---
CRITICAL TEST RESULTS [id number] EBONY MARC 35 F TESTS AND RESULTS: TROPONIN 0.12 Results received and read back by: FATOUMATA CAMERON Results received date and time: 05/18/16 1711 The following provider was notified of the results, and read the results back: DR PRIETO/[employer] Notified date and time: 05/18/16 at 1709
--- NOTE | 2016-05-18 17:26 | NUR ---
VSS, THIS RN TITRATED PT FROM 3LNC TO 2L NC 02 SAT 99%. PT VANDANA SCORE OF 4.
--- NOTE | 2016-05-18 17:50 | NUR ---
PT HAD 2 SILVER NECKLACES ON NECK, THIS RN TOOK OFF AND PLACED IN VALUABLES BAG, PT SIGNED.
--- NOTE | 2016-05-18 17:59 | NUR ---
PT MEDICATED WITH IV TYLENOL, 5000UNIT SC HEPARIN IN LEFT ABD, AND NS LITER #1 INFUSING AT 75ML/HR.
--- NOTE | 2016-05-18 18:25 | NUR ---
URINE TOX RESULTED WITH COCAINE IN PTS SYSTEM WHEN THIS RN ASKED PT HAS MUCH COCAINE WAS USED PT STATED "PSH LIKE 3 LINES"
--- NOTE | 2016-05-18 18:26 | NUR ---
PT MORE ALERT AND ORIENTED.
[2016-05-18 18:29] VITALS: BP 151/64
--- NOTE | 2016-05-18 18:30 | NUR ---
PTS CIWA SCORE OF 0
--- NOTE | 2016-05-18 18:41 | NUR ---
PT A&O X3, PT BECOMING AGGRESSIVE AND ANGRY BECAUSE SHE WANTS TO LEAVE. THIS RN INFORMED PT OF SITUATION, PT ASKED FOR WATER AND THIS RN GAVE PT A FEW SIPS OF WATER, PT TOLERATED WELL.
--- NOTE | 2016-05-18 18:42 | NUR ---
PT MEDICATED WITH 300MG ASA MO PER EMAR
--- NOTE | 2016-05-18 18:42 | NUR ---
PT TOOK NC OUT OF NOSE STATING" I DONT NEED THIS ANYMORE ITS MAKING MY NOSE RUN AND IM SICK OF YOU PEOPLE" PTS 02 SAT ON RA 98%
--- NOTE | 2016-05-18 20:11 | NUR ---
PT HAS A BED 105-1
--- NOTE | 2016-05-18 20:57 | NUR ---
THIS RN GAVE REPORT TO [place] SYED, THIS RN PAGED HOUSE RESIDENT MERRITT AND INFORMED HIM THAT PTS NARCAN DRIP FINISHED, RESIDENT ORDERED A SECOND DRIP TO BE INFUSING AND THIS RN CALLED PHARMACY TO MAKE IT.
[2016-05-18 22:00] VITALS: BP 106/47
[2016-05-19] VITALS (8 sets, daily range): BP systolic 110–150; BP diastolic 61–92
--- NOTE | 2016-05-19 01:22 | NUR ---
@2105 PT ARRIVED FROM ER AWAKE AND ALERT, PT PLACED ON ICU MONITOR SR 80'S, SBP 100'S, RR 25 92% ON ROOM AIR IN NO DISTRESS. PER ER NURSE DRIP TO BE RESTARTED PER MD VALLE, DRIP WAS INFUSING AT 1.1MG/SW=067SU X 1 LITER AND HAD FINISHED AROUND 1999. PER MD WHEAT TO RESTART DRIP AT 0.5MG/HR AND TITRATED BY 0.1MG/HR FOR RESPIRATORY COMPROMISE. PT C/O 08/27 BACK PAIN WHICH IS CHRONIC AND TAKES METHADONE FOR THIS, PT RECEIVED HER DAILY DOSE. SKIN INTACT NO EDEMA, CALVILLO IN PLACE ADEQUATE CLEAR YELLOW URINE. ADMISSION INTERVIEW DONE WITHOUT DIFFICULTY. SAFETY MONITOR ORDERED AND IN PLACE PER MD ORDER.
[2016-05-19 06:22] LABS: ABSOLUTE BASOPHIL COUNT 0 /CUMM (0.0-0.2); ABSOLUTE EOSINOPHIL COUNT 0 /CUMM (0.0-0.7); ABSOLUTE LYMPH COUNT 1.5 /CUMM (1.2-3.4); ABSOLUTE MONOCYTE COUNT 0.3 /CUMM (0.10-0.60); BASOPHIL % 0.4 % (0.0-2.0); EOSINOPHIL % 0.5 % (0-5); GRANULOCYTE % 78.7 % (42.2-75.2); HEMATOCRIT 35.9 % (37-47); MEAN CORPUSCULAR HGB 26.8 PG (27.0-31.0); MEAN CORPUSCULAR HGB CONC 32.4 G/DL (33.0-37.0); MEAN CORPUSCULAR VOLUME 82.8 FL (81.0-99.0); MEAN PLATELET VOLUME 9.9 FL (7.4-10.4); PLATELET COUNT 235 /CUMM (130-400); RBC DISTRIBUTION WIDTH 15.7 % (11.5-14.5); RED BLOOD CELL CT 4.33 /CUMM (4.20-5.40); WHITE BLOOD CELL COUNT 8.9 /CUMM (4.8-10.8)
--- NOTE | 2016-05-19 08:18 | PN- Housestaff ---
IRMA MATAMOROS,[facility] 05/19/16 0818: Subjective Follow-up For: Heroine overdose Subjective: Patient seen and examined this morning. She was lying comfortably in bed in no acute distress. She was alert and oriented times days and person, pass a bedside swallow, started on regular diet. She has been afebrile, blood pressure has been within normal limits. She remains on Narcan drip, will watch for opiate withdrawal and consider starting clonidine. She denies suicidal ideation, she says that in past she has been taking double the amount of hearing but has not affected her, since for over a year she has not been taking heroin maybe that's why this time her body responded to it like this. Patient is aware that she cannot leave AMA. Review of Systems Constitutional: Reports: see HPI. Objective Last 24 Hrs of Vital Signs/I&O Vital Signs Date Time Temp Pulse Resp B/P Pulse O2 O2 Flow FiO2 Ox Delivery Rate 05/19 0933 Room Air 05/19 0800 97.9 88 18 150/92 05/19 0800 97.9 88 18 150/92 97 Room Air 05/19 0600 98.0 90 14 139/78 05/19 0400 98.2 79 25 116/61 05/19 0400 97 Room Air 05/19 0200 97.0 78 24 116/82 04/01 0000 97.7 84 18 110/64 04/ 0000 99 Room Air 04/ 0000 97.7 84 18 110/64 99 Nasal 2.0L Cannula 05/18 2200 98.9 84 14 106/47 05/18 2123 91 Room Air 05/18 1936 98.5 87 18 117/60 99 Room Air 05/18 1921 98.3 93 16 120/58 98 Room Air 05/18 1829 98.6 92 16 151/64 05/18 1826 98.6 91 16 151/64 100 Nasal 2.0L Cannula 05/18 1723 98.4 83 20 148/88 99 Nasal 2.0L Cannula 05/18 1706 97.8 78 22 160/79 100 Nasal 2.0L Cannula 05/18 1651 81 14 161/85 100 Nasal Cannula 05/18 1629 97.8 77 14 146/83 100 Nasal 3.0L Cannula 05/18 1614 82 20 143/80 100 Nasal 2.0L Cannula 05/18 1509 97.4 91 18 130/71 100 Nasal 3.0L Cannula 05/18 1445 94 Room Air 2.0L 05/18 1410 101 14 138/62 94 Room Air Intake & Output 05/19 1600 05/19 0800 05/19 0000 Intake Total 3246 150 Output Total 2850 1800 Balance 396 -1650 Intake, IV 2566 150 Intake, Oral 680 Number 0 0 Bowel Movements Output, Urine 2850 1800 Patient 131.202 kg Weight Physical Exam General Appearance: Alert, Oriented X3, Cooperative, No Acute Distress Cardiovascular: Regular Rate, Normal S1, Normal S2, No Murmurs Lungs: Clear to Auscultation, Normal Air Movement Abdomen: Normal Bowel Sounds, Soft, No Tenderness Extremities: No Clubbing, No Cyanosis, trace edema Current Medications: Current Medications Sig/Brenda Start time Last Medication Dose Route Stop Time Status Admin Acetaminophen 1,000 MG Q6P PRN 05/18 1800 AC 05/18 IV 1800 Acetaminophen 0 .STK-MED ONE 05/18 1739 DC IV Albuterol Sulfate 2 PUF Q4P PRN 05/19 0945 AC INH Aspirin 300 MG ONCE ONE 05/18 1745 DC 05/18 AL 05/18 1746 1841 Heparin Sodium 0 .STK-MED ONE 05/18 1739 DC (Porcine) .ROUTE Heparin Sodium 5,000 UNIT Q8 05/18 1722 AC 05/19 (Porcine) SC 0728 Lorazepam 2 MG Q2P PRN 05/18 1730 AC 05/19 IV 0808 Magnesium Oxide 400 MG ONE ONE 05/19 0845 DC 05/19 PO 05/19 0846 1052 Metoprolol Tartrate 5 MG ONCE ONE 05/18 1745 DC IV 05/18 1746 Naloxone HCl 4 MG Q24H 05/18 2100 AC 05/19 Sodium Chloride 1,000 ML IV 0233 Naloxone HCl 0.4 MG ONCE ONE 05/18 1615 DC 05/18 IV 05/18 1616 1609 Naloxone HCl 0 .STK-MED ONE 05/18 1606 DC .ROUTE Naloxone HCl 4 MG Q24H 05/18 1530 DC 05/18 Sodium Chloride 1,000 ML IV 1615 Naloxone HCl 0 .STK-MED ONE 05/18 1516 DC .ROUTE Naloxone HCl 0.4 MG ONCE ONE 05/18 1515 DC 05/18 IV 05/18 1516 1519 Naloxone HCl 0.4 MG ONCE ONE 05/18 1445 DC 05/18 IV 05/18 1446 1509 Naloxone HCl 0 .STK-MED ONE 05/18 1445 DC .ROUTE Sodium Chloride 1,000 ML ONCE ONE 05/18 2345 DC 05/19 IV 05/19 0944 0100 Sodium Chloride 1,000 ML .[id number] 05/18 1730 AC 05/19 IV 0800 Last 24 Hrs of Lab/Jay Results Last 24 Hrs of Labs/Mics: Laboratory Tests 05/19/16 0405: Anion Gap 10, Estimated GFR > 60, Glucose 106 H, Calcium 8.5, Phosphorus 1.8 L , Magnesium 1.9, Total Bilirubin 0.5, AST 66 H, ALT 88 H, Troponin I 0.05, Albumin 3.5, CBC w Diff NO MAN DIFF REQ, RBC 4.33, MCV 82.8, MCH 26.8 L, RDW 15.7 H, MPV 9.9, Gran % 78.7 H, Lymphocytes % 16.6 L, Monocytes % 3.8, Eosinophils % 0.5, Basophils % 0.4, Absolute Granulocytes 7.0 H, Absolute Lymphocytes 1.5, Absolute Monocytes 0.3, Absolute Eosinophils 0, Absolute Basophils 0, PUBS MCHC 32.4 L 05/18/16 2244: Troponin I 0.08 05/18/16 1808: Lactic Acid Cancelled 05/18/16 1645: Urine Opiates Screen > 4000.00 H, Methadone Screen > 735 H, Barbiturate Screen 62, Ur Phencyclidine Scrn < 6.00, Amphetamines Screen 136, U Benzodiazepines Scrn 470 H, Urine Cocaine Screen > 1000 H, Urine Cannabis Screen < 5.00, Urine Test NEGATIVE 05/18/16 1600: Anion Gap 12, Estimated GFR > 60, BUN/Creatinine Ratio 10.0, Glucose 88, Lactic Acid 1.9, Calcium 9.2, Total Bilirubin 0.4, AST 100 H, ALT 115 H, Alkaline Phosphatase 100, Creatine Kinase 350 H, Troponin I 0.12 *H, Total Protein 7.5, Albumin 4.4, Globulin 3.1, Albumin/Globulin Ratio 1.4, Total Beta HCG NEGATIVE, CBC w Diff MAN DIFF ORDERED, RBC 4.75, MCV 82.1, MCH 26.6 L, RDW 15.5 H, MPV 9.0, Gran % 83.3 H, Lymphocytes % 9.3 L, Monocytes % 6.6, Eosinophils % 0.6, Basophils % 0.2, Absolute Granulocytes 12.7 H, Absolute Lymphocytes 1.4, Absolute Monocytes 1.0 H, Absolute Eosinophils 0.1, Absolute Basophils 0, Platelet Estimate ADEQUATE, Poikilocytosis 2+, Stomatocytes 2+, PUBS MCHC 32.4 L, Serum Alcohol < 10.0 05/18/16 1545: pH 7.34 L, pCO2 49 H, pO2 97, HCO3 26, ABG O2 Sat (Measured) 94.0 L, P-50 ( Temp Corrected) Y, Carboxyhemoglobin 2.6, O2 Concentration % 3L, Temperature 98.0, O2 Delivery Method N/C, Phlebotomy Draw Site LEFT RADIAL Microbiology 05/20 39 UPPER RESP: Surveillance Culture - RECD 05/20 39 GI: Surveillance Culture - RECD 05/18 164 URINE ROUT: Urine Culture - RES Assessment/Plan Assessment: 35-year-old woman with significant drug and psychologic history was admitted for polysubstance abuse and overdose. Urine toxicology is pending BEP: AST and ALT 100 and 115, alkaline phosphatase normal. Elevated troponin 0.12 List of active problems #1 polysubstance overdose * Admitted to ICU for close monitoring * Check neuro every 4 * Patient has passed bedside swallow, diet advanced to regular. * Aspiration precaution; fall precaution * Mild IV hydration with 50-75 mL/h normal saline * U tox positive for opiates and positive for benzo and positive for cocaine * Check vitals every; close monitor for withdrawal symptoms * Titrating off of Narcan drip * Check CIWA Q1 * Ativan 2 mg every treated by CIWA score * She cannot leave AMA * Psych eval pending * If patient became hypertensive consider using CCB ( diltiazem; vasospastic nature of coccaine) * If patient developed symptoms of Opioid withdrawl consider clonidine 0.1-0.3 mg q1 clonidine and repeat as needed to reverse the symptoms #2 Leukocytosis with left shift or bandemia stable vital signs (afebrile). Chest x-ray did not show any evidence of pneumonia or aspiration (pneumonitis. * Hydration * Watch off antibiotics if patient spikes fevers or starts desaturating and blood cultures and started patient on IV Unasyn probably 3000 mL every 8 aspiration pneumonia * Repeat labs in the a.m. #3 Elevated troponin: Demand ischemia versus non-ST elevated myocardial infarction. In the setting of overdose and respiratory failure, it is possible, that patient has exerted her heart however patient is morbidly obese and and her medical care is not known ( smoke ?? and FH ??) Setting none ST elevation myocardial infarction cannot be ruled out. Urine toxicology positive for cocaine increase the chance of cocaine associated myocardial ischemia, or cocaine induce coronary artery vasoconstriction. * Continuous telemetry monitoring possibility of arrhythmia * troponin 0.12>>0.08>>0.05sening cocaine toxicity * If patient became severely hypertensive starts use CC blockers preferably Diltiazem * Aspirin 300 mg once * use nitrate patch for chest pain * calcium channel blockers (superior due to vaso-spastic nature of Coccaine) or alpha blockers for hypertension; avoid Bblockers at least before premedicating with alpha blockers * O2 supp and maintain O2% above 92% #4 Abnormal LFTs * Obtain abdominal ultrasound when patient is established #5 Hx of using INH with diagnosis of COPD- OHS and DIANA and possible COPD by examination and Hx. * DueNeb Q4 as needed #6 slight increase in CK; no renal failure; possibly due to Coccain-induced rhabdo and dehydrayion * Started on diet * Continue gentle hydration DVT prophylaxis-heparin 5000 units every 8 Pain-IV Tylenol, Avoid narcotics, Avoid NSAID FC-needs reevaluation Problem List: 1. 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 Course complicated by elevated troponin in the setting of demand ischemia. Initially unresponsive and unable to give history. Today patient is awake, alert, and conversive. She reports feeling well and with no complaints. Narcan drip has been stopped. Labs reviewed. Plan - May downgrade to general medicine floor - Restart home Clonazepam - Stop IV fluids - Ativan per CIWA - Psychiatry consult - Methadone dose confirmed, see resident event note. Will not start at this time, possibly tomorrow - DVT PPx
--- NOTE | 2016-05-19 09:50 | Patient Discharge Instructions ---
Discharge Instructions General Discharge Information Special Instructions: -Please follow-up with your primary care physician within 1 week after discharge -Please follow up with [facility] phone #[phone] Acute Coronary Syndrome Inclusion Criteria At DC or during hospital stay patient has or had the following: ACS DIAGNOSIS No Discharge Core Measures Meds if any: Prescribed or Continued at Discharge Meds if any: NOT Prescribed or Continued at Discharge Congestive Heart Failure Inclusion Criteria At DC or during hospital stay patient has or had the following: CHF DIAGNOSIS No Discharge Core Measures Meds if any: Prescribed or Continued at Discharge Meds if any: NOT Prescribed or Continued at Discharge Cerebrovascular accident Inclusion Criteria At DC or during hospital stay patient has or had the following: CVA/TIA Diagnosis No Discharge Core Measures Meds if any: Prescribed or Continued at Discharge Meds if any: NOT Prescribed or Continued at Discharge Venous thromboembolism Inclusion Criteria VTE Diagnosis No VTE Type NONE VTE Confirmed by (Test) NONE Discharge Core Measures - Per Current guidelines, there needs to be overlap - treatment for the first 5 days of Warfarin therapy. - If discharged on Warfarin prior to 5 days of - overlap therapy, the patient will need to be - assessed for post discharge needs including - *Post discharge parental anticoagulation - *Warfarin and/or parental anticoagulation education - *Follow up date to check INR post discharge At least 5 days overlap therapy as Inpatient No Meds if any: Prescribed or Continued at Discharge Note: Overlap Therapy is Warfarin and Anticoagulant Meds if any: NOT Prescribed or Continued at Discharge
--- NOTE | 2016-05-19 11:41 | Cons- Cardiology ---
General Information and HPI Consulting Request Date of Consult: 05/19/16 Requested By: UDAY MALDONADO MD Reason for Consult: Positive troponin in a patient with overdose. Source of Information: patient, old records, friend Exam Limitations: no limitations History of Present Illness: The patient is a 35-year-old female history of polysubstance abuse. She is on methadone. She admits to using 4 bags of heroin with possible fentanyl. She overdosed on this and her boyfriend then gave her 2 doses of Narcan that he had with the result that she did not wake up but she started breathing again. In the emergency room she was placed on a Narcan drip which has subsequently been discontinued. Her initial troponin was 0.12 but then decreased thereafter. Her EKG was normal. She denies having any chest pain. She denies any underlying heart disease. At this time she has no complaints. She is eager to be discharged. Allergies/Medications Allergies: Coded Allergies: NSAIDS (Non-Steroidal Anti-Inflamma (RASH 03/15/16) prochlorperazine (From COMPAZINE) ("DYSTONIC" 03/15/16) Home Med List: Albuterol Sulfate (Proair Hfa) 90 MCG HFA.AER.AD 2 PUF INH Q4-6 PRN PRN BREATHING (Reported) Budesonide/Formoterol Fumarate (Symbicort 160-4.5 Mcg Inhaler) 160 MCG-4.5 MCG/ ACTUATION HFA.AER.AD 2 PUF INH BID BREATHING PROBLEMS (Reported) Butalb/Acetaminophen/Caffeine (Crkbzq-Phtuvmex-Sxdz 50-325-40) 50 MG-325 MG-40 MG TABLET 1 TAB PO Q6-PRN PRN HEADACHE (Reported) Clonazepam 1 MG TABLET 1 TAB PO 4 TIMES/DAY ANXIETY (Reported) Cyclobenzaprine HCl 10 MG TABLET 1 TAB PO TID MUSCLE (Reported) Furosemide 20 MG TABLET 3 TAB PO DAILY WATER PILL (Reported) Lurasidone HCl (Latuda) 80 MG TABLET 1 TAB PO DAILY MENTAL HEALTH (Reported) Methadone Hydrochloride (Methadone HCl) 10 MG TABLET 4 TAB PO DAILY PAIN ( Reported) Methylprednisolone. (Medrol) 4 MG TAB.DS.PK 1 DP PO AD INFLAMMATION 6 on day 1 then reduce by one tablet daily until gone Metolazone 5 MG TABLET 1 TAB PO DAILY UNKNOWN (Reported) Nortriptyline HCl 25 MG CAPSULE 1 CAP PO BID UNKNOWN (Reported) Pantoprazole Sodium 40 MG TABLET.DR 1 TAB PO DAILY GI (Reported) Potassium Chloride 20 MEQ TAB.ER.PRT 1 TAB PO DAILY SUPPLEMENT (Reported) Pregabalin (Lyrica) 150 MG CAPSULE 1 CAP PO TID PAIN (Reported) Pregabalin (Lyrica) 150 MG CAPSULE 1 CAP PO TID NEUROPATHY Sofosbuvir/Velpatasvir (Epclusa 400 MG-100 MG Tablet) 400 MG-100 MG TABLET 1 TAB PO QPM HEP C (Reported) Topiramate 100 MG TABLET 1 TAB PO TID HEADACHE (Reported) Tramadol HCl 50 MG TABLET 1 TAB PO Q6-PRN PRN PAIN (Reported) Vortioxetine Hydrobromide (Trintellix) 5 MG TABLET 2 TAB PO DAILY MOOD STABILITY (Reported) Review of Systems Review of Systems: Negative Past History Travel History Traveled to [place] past 21 day No Medical History Blood Transfusion Hx: No Neurological: migraine EENT: NONE Cardiovascular: NONE Respiratory: NONE Gastrointestinal: NONE Hepatic: hepatitis C Renal: NONE Musculoskeletal: NONE Psychiatric: NONE Endocrine: NONE Blood Disorders: DVT Cancer(s): NONE Surgical History Surgical History: GALLBLADDER SPINAL FUSION Psychosocial History Where Do You Live? Home Smoking Status: Former Smoker Living Will? unknown Functional Ability ADLs Independent: dressing, eating, toileting, bathing. Ambulation: independent IADLs Independent: shopping, housework, finances, food prep, telephone, transportation , medication admin. Exam & Diagnostic Data Vital Signs and I&O Vital Signs Date Time Temp Pulse Resp B/P Pulse O2 O2 Flow FiO2 Ox Delivery Rate 05/19 0933 Room Air 05/19 0800 97.9 88 18 150/92 04 0800 97.9 88 18 150/92 97 Room Air 05/19 0600 98.0 90 14 139/78 05/19 0400 98.2 79 25 116/61 05/19 0400 97 Room Air 05/19 0200 97.0 78 24 116/82 04/ 0000 97.7 84 18 110/64 04/ 0000 99 Room Air 05/19 0000 97.7 84 18 110/64 99 Nasal 2.0L Cannula 05/18 2199 98.9 84 14 106/47 05/18 2122 91 Room Air 03/31 1936 98.5 87 18 117/60 99 Room Air 05/18 1921 98.3 93 16 120/58 98 Room Air 05/18 1829 98.6 92 16 151/64 05/18 1826 98.6 91 16 151/64 100 Nasal 2.0L Cannula 05/18 1723 98.4 83 20 148/88 99 Nasal 2.0L Cannula 05/18 1706 97.8 78 22 160/79 100 Nasal 2.0L Cannula 05/18 1651 81 14 161/85 100 Nasal Cannula 05/18 1629 97.8 77 14 146/83 100 Nasal 3.0L Cannula 05/18 1614 82 20 143/80 100 Nasal 2.0L Cannula 05/18 1509 97.4 91 18 130/71 100 Nasal 3.0L Cannula 05/18 1445 94 Room Air 2.0L 05/18 1410 101 14 138/62 94 Room Air Intake & Output 05/19 1600 05/19 0800 05/19 0000 05/18 1600 05/18 0800 05/18 0000 Intake Total 3246 150 Output Total 2850 1800 Balance 396 -1650 Intake, IV 2566 150 Intake, Oral 680 Number 0 0 Bowel Movements Output, Urine 2850 1800 Patient 289 lb 250 lb Weight Physical Exam: She is a morbidly obese young female in no acute distress. She is awake alert and conversant HEENT exam is normal Chest is clear Heart reveals regular rhythm and no murmurs Extremities no edema Neurologic examination is grossly normal Labs/Jay Results: Laboratory Tests 05/19 05/18 05/18 0405 2244 1808 Chemistry Sodium (137 - 145 mmol/L) 141 Potassium (3.5 - 5.1 mmol/L) 4.1 Chloride (98 - 107 mmol/L) 106 Carbon Dioxide (22 - 30 mmol/L) 25 Anion Gap (5 - 16) 10 BUN (7 - 17 mg/dL) 4 L Creatinine (0.5 - 1.0 mg/dL) 0.6 Estimated GFR (>60 ml/min) > 60 Glucose (65 - 99 mg/dL) 106 H Lactic Acid Cancelled Calcium (8.4 - 10.2 mg/dL) 8.5 Phosphorus (2.5 - 4.5 mg/dL) 1.8 L Magnesium (1.6 - 2.3 mg/dL) 1.9 Total Bilirubin (0.2 - 1.3 mg/dL) 0.5 AST (14 - 36 U/L) 66 H ALT (9 - 52 U/L) 88 H Troponin I (< 0.11 ng/ml) 0.05 0.08 Albumin (3.5 - 5.0 g/dL) 3.5 Hematology CBC w Diff NO MAN DIFF REQ WBC (4.8 - 10.8 /CUMM) 8.9 RBC (4.20 - 5.40 /CUMM) 4.33 Hgb (12.0 - 16.0 G/DL) 11.6 L Hct (37 - 47 %) 35.9 L MCV (81.0 - 99.0 FL) 82.8 MCH (27.0 - 31.0 PG) 26.8 L RDW (11.5 - 14.5 %) 15.7 H Plt Count (130 - 400 /CUMM) 235 MPV (7.4 - 10.4 FL) 9.9 Gran % (42.2 - 75.2 %) 78.7 H Lymphocytes % (20.5 - 51.1 %) 16.6 L Monocytes % (1.7 - 9.3 %) 3.8 Eosinophils % (0 - 5 %) 0.5 Basophils % (0.0 - 2.0 %) 0.4 Absolute Granulocytes (1.4 - 6.5 /CUMM) 7.0 H Absolute Lymphocytes (1.2 - 3.4 /CUMM) 1.5 Absolute Monocytes (0.10 - 0.60 /CUMM) 0.3 Absolute Eosinophils (0.0 - 0.7 /CUMM) 0 Absolute Basophils (0.0 - 0.2 /CUMM) 0 PUBS MCHC (33.0 - 37.0 G/DL) 32.4 L 05/18 05/18 1645 1600 Chemistry Sodium (137 - 145 mmol/L) 140 Potassium (3.5 - 5.1 mmol/L) 5.1 Chloride (98 - 107 mmol/L) 100 Carbon Dioxide (22 - 30 mmol/L) 28 Anion Gap (5 - 16) 12 BUN (7 - 17 mg/dL) 8 Creatinine (0.5 - 1.0 mg/dL) 0.8 Estimated GFR (>60 ml/min) > 60 BUN/Creatinine Ratio (7 - 25 %) 10.0 Glucose (65 - 99 mg/dL) 88 Lactic Acid (0.7 - 2.1 mmol/L) 1.9 Calcium (8.4 - 10.2 mg/dL) 9.2 Total Bilirubin (0.2 - 1.3 mg/dL) 0.4 AST (14 - 36 U/L) 100 H ALT (9 - 52 U/L) 115 H Alkaline Phosphatase (<127 U/L) 100 Creatine Kinase (30 - 135 U/L) 350 H Troponin I (< 0.11 ng/ml) 0.12 *H Total Protein (6.3 - 8.2 g/dL) 7.5 Albumin (3.5 - 5.0 g/dL) 4.4 Globulin (1.9 - 4.2 gm/dL) 3.1 Albumin/Globulin Ratio (1.1 - 2.2 %) 1.4 Total Beta HCG (NEGATIVE) NEGATIVE Hematology CBC w Diff MAN DIFF ORDERED WBC (4.8 - 10.8 /CUMM) 15.2 H RBC (4.20 - 5.40 /CUMM) 4.75 Hgb (12.0 - 16.0 G/DL) 12.6 Hct (37 - 47 %) 39.0 MCV (81.0 - 99.0 FL) 82.1 MCH (27.0 - 31.0 PG) 26.6 L RDW (11.5 - 14.5 %) 15.5 H Plt Count (130 - 400 /CUMM) 289 MPV (7.4 - 10.4 FL) 9.0 Gran % (42.2 - 75.2 %) 83.3 H Lymphocytes % (20.5 - 51.1 %) 9.3 L Monocytes % (1.7 - 9.3 %) 6.6 Eosinophils % (0 - 5 %) 0.6 Basophils % (0.0 - 2.0 %) 0.2 Absolute Granulocytes (1.4 - 6.5 /CUMM) 12.7 H Absolute Lymphocytes (1.2 - 3.4 /CUMM) 1.4 Absolute Monocytes (0.10 - 0.60 /CUMM) 1.0 H Absolute Eosinophils (0.0 - 0.7 /CUMM) 0.1 Absolute Basophils (0.0 - 0.2 /CUMM) 0 Platelet Estimate (ADEQUATE) ADEQUATE Poikilocytosis 2+ Stomatocytes 2+ PUBS MCHC (33.0 - 37.0 G/DL) 32.4 L Toxicology Urine Opiates Screen (>2000 NG/ML) > 4000.00 H Methadone Screen (>300 NG/ML) > 735 H Barbiturate Screen (>200 NG/ML) 62 Ur Phencyclidine Scrn (>25 NG/ML) < 6.00 Amphetamines Screen (>1000 NG/ML) 136 U Benzodiazepines Scrn (>200 NG/ML) 470 H Urine Cocaine Screen (>300 NG/ML) > 1000 H Urine Cannabis Screen (>50 NG/ML) < 5.00 Serum Alcohol (<10 MG/DL) < 10.0 Urines Urine Test NEGATIVE 05/18 1545 Blood Gas pH (7.35 - 7.45 PH) 7.34 L pCO2 (35 - 45 TORR) 49 H pO2 (80 - 100 TORR) 97 HCO3 (21 - 28 MEQ/L) 26 ABG O2 Sat (Measured) (>96.0 %) 94.0 L P-50 (Temp Corrected) Y Carboxyhemoglobin (1.5 - 5.0 %) 2.6 O2 Concentration % 3L Temperature (97.0 - 100.0 FARH) 98.0 O2 Delivery Method N/C Miscellaneous Phlebotomy Draw Site LEFT RADIAL Diagnostic Data EKG Results EKG on presentation showed sinus rhythm rate of 84. There is borderline T-wave inversion in lead V2 otherwise the EKG is normal. EKG done at 3:38 AM shows sinus rhythm at 81 and is completely normal. CXR Results IMPRESSION: No evidence for acute disease. DICTATED BY: NIXON SEGUNDO MD DATE/TIME DICTATED:05/18/161531 ACADEMIC AFFAIRS COORDINATOR:ELIER DATE/TIME TRANSCRIBED:05/18/161531 Assessment/Plan Assessment/Plan This patient presented with narcotic overdose. She also was positive for cocaine. She had an initial troponin of 0.12, which is slightly above upper limits of normal. Troponins have subsequently decreased. 2 EKGs show no significant abnormalities. There is no evidence of underlying heart disease. I don't think there are any significant cardiac issues here. The patient does not require anticoagulation, telemetry monitoring or echocardiogram. She can be discharged when she is stable from a medical standpoint. She of course should be counseled regarding drug abuse. Consult Acknowledgment - Thank you for your consult request.
--- NOTE | 2016-05-19 13:17 | Event Note ---
Event Note Event Note: Spoke to patients methadone clinic at [facility] at [address] Contact- number [phone] regarding methadone dose. Patient currently is on 40 mg of methadone daily, last dose was given on at 7 AM. They have recommended that in case if she was given methadone in hospital, dose and timing of the last dose has to be documented in the discharge summary.
--- NOTE | 2016-05-19 16:00 | Admission Certification ---
Admission Certification Certification Statement - As attending physician, I certify that at the time of - admission, based on clinical presentation, severity of - symptoms, need for further diagnostic testing and - therapeutic interventions, and risk of adverse outcomes - without in-hospital treatment, in my clinical assessment, - this patient requires an acute hospital stay for a minimum - of two nights or longer. I have also considered psychsocial - factors such as support system, advanced age, financial - issues, cognitive issues, and failed out-patient treatments, - past re-admission history, safety of patient, and lack of - compliance as applicable. Specific rationale supporting this admission is: Unresponsiveness due to heroin overdose
[2016-05-20] VITALS: BP 128/82
[2016-05-20 04:00] VITALS: BP 130/80
[2016-05-20 06:00] VITALS: BP 110/70
[2016-05-20 07:38] VITALS: BP 110/70
[2016-05-20 08:00] VITALS: BP 112/72
[2016-05-20 08:19] LABS: ABSOLUTE BASOPHIL COUNT 0 /CUMM (0.0-0.2); ABSOLUTE EOSINOPHIL COUNT 0.3 /CUMM (0.0-0.7); ABSOLUTE GRANULOCYTE CT 4.1 /CUMM (1.4-6.5); ABSOLUTE LYMPH COUNT 3.5 /CUMM (1.2-3.4); ABSOLUTE MONOCYTE COUNT 0.5 /CUMM (0.10-0.60); BASOPHIL % 0.5 % (0.0-2.0); EOSINOPHIL % 4.1 % (0-5); GRANULOCYTE % 48.3 % (42.2-75.2); HEMATOCRIT 32.8 % (37-47); MEAN CORPUSCULAR HGB 26.7 PG (27.0-31.0); MEAN CORPUSCULAR HGB CONC 32.3 G/DL (33.0-37.0); MEAN CORPUSCULAR VOLUME 82.5 FL (81.0-99.0); MEAN PLATELET VOLUME 9.4 FL (7.4-10.4); PLATELET COUNT 200 /CUMM (130-400); RBC DISTRIBUTION WIDTH 15.6 % (11.5-14.5); RED BLOOD CELL CT 3.97 /CUMM (4.20-5.40)
[2016-05-20 09:12] LABS: WHITE BLOOD CELL COUNT 8.4 /CUMM (4.8-10.8)
--- NOTE | 2016-05-20 09:12 | PN- Housestaff ---
See Addendum Subjective Follow-up For: Heroine overdose Subjective: Patient was seen and examined this morning, she reports feeling "excellent", denied weakness, lethergy, headaches, SOB, palpitaton,chest pain. patient wants to be discharged. will obtain hemeoccult stool for dropping Hb. vital signs are stable, no overnight events. Review of Systems Constitutional: Reports: see HPI. Objective Last 24 Hrs of Vital Signs/I&O Vital Signs Date Time Temp Pulse Resp B/P Pulse O2 O2 Flow FiO2 Ox Delivery Rate 05/20 0800 76 18 112/72 04/ 0738 98.8 80 20 110/70 96 Room Air / 0600 98.8 80 20 110/70 / 0400 98.3 89 20 130/80 04/ 0000 98.1 91 20 128/82 04/ 2200 97.9 83 20 122/80 04/ 2152 97.9 83 20 122/80 96 04/01 1352 97.9 76 20 128/72 100 Room Air Intake & Output 05/20 1600 05/20 0800 / 0000 Intake Total 260 500 Output Total Balance 260 500 Intake, IV 20 20 Intake, Oral 240 480 Physical Exam General Appearance: Alert, Oriented X3, Cooperative, No Acute Distress Skin: No Rashes, No Breakdown, No Significant Lesion HEENT: Atraumatic, PERRLA, EOMI, Mucous Membr. moist/pink Neck: Supple Cardiovascular: Regular Rate, Normal S1, Normal S2, No Murmurs Lungs: Clear to Auscultation, Normal Air Movement Abdomen: Normal Bowel Sounds, Soft, No Tenderness Neurological: Normal Gait, Normal Speech, Strength at 5/5 X4 Ext, Normal Tone, Sensation Intact, Cranial Nerves 3-12 NL, Reflexes 2+ Extremities: No Clubbing, No Cyanosis, No Edema, Normal Pulses Assessment/Plan Assessment: 35-year-old woman with significant drug and psychologic history was admitted for polysubstance abuse and overdose. Urine toxicology is pending BEP: AST and ALT 100 and 115, alkaline phosphatase normal. Elevated troponin 0.12 List of active problems #polysubstance overdose * U tox positive for opiates and positive for benzo and positive for cocaine * Off of Narcan drip * Patient was evaluated by psych, was cleared for discharge * Methadone dose was confirmed (methadone clinic at [facility] at -[address], [place], number [phone]) patient received 1 dose of methadone 40 mg #Leukocytosis with left shift or bandemia stable vital signs (afebrile). Chest x-ray did not show any evidence of pneumonia or aspiration (pneumonitis. * Patient was received IV fluid hydration * Watch off antibiotics, afebrile, WBC 8.4 #Elevated troponin: * Demand ischemia * troponin 0.12>>0.08>>0.05sening cocaine toxicity * Cardiac consultation was obtained, was cleared from cardiac standpoint #Hx of using INH with diagnosis of COPD- OHS and DIANA and possible COPD by examination and Hx. * DueNeb Q4 as needed #slight increase in CK; no renal failure; possibly due to Coccain-induced rhabdo and dehydrayion * Started on diet * Continue gentle hydration DVT prophylaxis-heparin 5000 units every 8 Code full Patient is for discharge today after psych clearance, will continue all home medication Problem List: 1. Opiate overdose Pain Ratin Pain Location: None Pain Goal: Pain 4 or less Pain Plan: Mild pain pathway Tomorrow's Labs & Rationales: None Consulting Request: Consulting Specialty: Critical Care examination and Hx. * DueNeb Q4 as needed #6 slight increase in CK; no renal failure; possibly due to Coccain-induced rhabdo and dehydrayion * Started on diet * Continue gentle hydration DVT prophylaxis-heparin 5000 units every 8 Pain-IV Tylenol, Avoid narcotics, Avoid NSAID FC-needs reevaluation Consulting Request: Consulting Specialty: Critical Care
--- NOTE | 2016-05-20 09:49 | Cons- Psychiatry ---
Psychiatric Consult Date of Consult: 05/19/16 Reason for Consult: "clearance" History of Present Illness: Per medicine H&P, "35-year-old woman was brought in by ambulance after she was found to be unresponsive. This is a 35-year-old woman with significant history of poorly substance abuse, on methadone program. Due to her clinical condition patient is not able to provide any detail about the incident. Most of the HPI was obtained from the ED physician the story that was given by patient's boyfriend. According to patient's boyfriend patient remained sober from Heroin for 1 year or so. Patient used 4 bags of heroine and 2 tabs of clonazepam. According to boyfriend she became mentally altered, confused, developed difficulty breathing and eventually become obtunded and unresponsive. Boyfriend gave HER-2 boluses of IV Narcan and filled however she remained unresponsive and was transferred to the emergency room. According to ED physician upon presentation patient had respiratory failure, pinpoint nonreactive pupils she was considered confused and nonresponsive to verbal and painful stimulus. Patient was a started on Narcan drip after receiving 4 boluses of Narcan in the emergency room. Patient's mentation and respiration restored, and acceptable level, during the search of staying in the emergency room patient's vital signs remained stable patient did not require any life support including intubation ventilation or central line vasopressor. Lab values, WBC 15.2 left shift no bandemia. Blood gas 7.34/49/26. Toxicology screen is pending. Biochemical panel is pending. Chest x-ray did not show any acute polmonary pathology. 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 Lives with her boyfriend. Details of her social life is not clear. According to ED documentation patient clearly mentioned that she had no intention to hurt herself." On exam today, pt in bed, sitting up, eating some ice cream. She stated that she had not used heroin in 8 years. A friend at the [facility] program gave her some heroin and said it was really good, "you can't pass something up if its in your hand." She used 4 bags and then lost consciousness. He boyfriend gave her narcan and brought her to the hospital. She states that recently, she has been "fine" and "really happy with my life." She notes mood as been upbeat." Denies SI or HI, denies depression, pillo, psychosis. Occasional trauma-related sx consistent with dx of PTSD but pt feels they are much improved from years before. She notes good sleep and apetite. No longer working as on disability 2/2 back injury while employed as nurse. Currently going to [facility] in [place], , for MM and seeing Dr. Froilan Espinoza for medical management of ?chronic pain. She is prescibed klonopin 1mg QID , which she has been on for past ~10-15 years. She also takes lyrica. As to previous substance use history. Quit tobacco three months ago since smoking since 13yo, 1/2ppd, denied alcohol use, heroin stared ~[age]yo, up to 5 bags/d, not taken in 8 years. Denies other substance. Pt feels that she "learned her lesson" about just "trying a little heroin." She is very future oriented. Supports are bf and father. She lives between both of [facility]. Also notes sister is great support to her as well. Per H&P on 05/18, "According to ED documentation patient clearly mentioned that she had no intention to hurt herself." Allergies: Coded Allergies: NSAIDS (Non-Steroidal Anti-Inflamma (RASH 03/15/16) prochlorperazine (From COMPAZINE) ("DYSTONIC" 03/15/16) Current Medications: Current Medications Sig/Brenda Start time Last Medication Dose Route Stop Time Status Admin Acetaminophen 1,000 MG Q6P PRN 05/18 1800 AC 05/18 IV 1800 Albuterol Sulfate 2 PUF Q4P PRN 05/19 0945 AC INH Clonazepam 1 MG 4 TIMES/DAY 05/19 1400 AC 05/20 PO 05/26 1359 0930 Diphenhydramine HCl 25 MG ONCE ONE 05/20 0400 DC 05/20 IV 05/20 0401 0400 Diphenhydramine HCl 25 MG ONCE ONE 05/19 2345 DC 05/20 IV 05/19 2346 0001 Heparin Sodium 5,000 UNIT Q8 05/18 1722 AC 05/20 (Porcine) SC 0544 Lorazepam 2 MG Q2P PRN 05/18 1730 AC 05/19 IV 0808 Methadone HCl 40 MG DAILY 05/20 1000 AC 05/20 PO 0949 Naloxone HCl 4 MG Q24H 05/18 2100 DC 05/19 Sodium Chloride 1,000 ML IV 0233 Pregabalin 150 MG TID 05/19 1600 AC 05/20 PO 0930 Sodium Chloride 1,000 ML .[id number] 05/18 1730 DC 05/19 IV 0800 Past History Past Medical History Any Pertinent Medical History? unobtainable Neurological: migraine EENT: NONE Cardiovascular: NONE Respiratory: NONE Gastrointestinal: NONE Hepatic: hepatitis C Renal: NONE Musculoskeletal: NONE Psychiatric: NONE Endocrine: NONE Blood Disorders: DVT Cancer(s): NONE Past Surgical History Surgical History: GALLBLADDER SPINAL FUSION Psychosocial History Strengths/Capabilities: social supports Psychiatric Treatment History Psych Treatment Psychiatric Treatment Yes (Dr. Demarcus Espinoza in [place]) Inpatient Treatment No Outpatient Treatment Yes ([facility] and Dr. Espinoza) Location of Treatment [place] Reason for Treatment positive Dates of Treatment past 10 years Response to Treatment positive Diagnosis: Opoid Use disorder PTSD Nicotine dependence, in recent remission Risk Factors: high anxiety/distress, substance abuse Substance Use/Abuse History Drug Use/Abuse Substances Used/Abused Yes Substance Used/Abused Heroin First Use [age]yo Last Used 05/18 How much used/taken 4 bags, was 5 bags/d How often was daily For how long 2-4 years Route of use IV and IN Substance Abuse Treatment Substance Abuse Treatment Past Substance Abuse [place] Yes Inpatient Treatment No Outpatient Treatment Yes Location of Treatment [place] Reason for Treatment heroin Dates of Treatment past 8 years to current Response to Treatment positive Assessment/Plan Mental Status Orientation: Person, Place, Situation Affect: WNL Speech: WNL Neuro-vegetative: WNL Mental Status Exam: MSE Appears as stated age. Cooperative behavior, good, appropriate eye contact. Nl speech rate and prosody. No psychomotor retardation or agitation. Mood fine Affect euthymic, bright, affable, appropriate, non-liable. Linear and goal directed thought process. Denies SI or HI. Does not appear to be responding to internal stimuli. Denies AVHs, paranoia, or delusions. I/J:fair Lab Results: Laboratory Tests 05/20 05/19 0705 0405 Chemistry Sodium (137 - 145 mmol/L) 136 L 141 Potassium (3.5 - 5.1 mmol/L) 4.2 4.1 Chloride (98 - 107 mmol/L) 105 106 Carbon Dioxide (22 - 30 mmol/L) 27 25 Anion Gap (5 - 16) 3 L 10 BUN (7 - 17 mg/dL) 7 4 L Creatinine (0.5 - 1.0 mg/dL) 0.8 0.6 Estimated GFR (>60 ml/min) > 60 > 60 Glucose (65 - 99 mg/dL) 96 106 H Calcium (8.4 - 10.2 mg/dL) 9.1 8.5 Phosphorus (2.5 - 4.5 mg/dL) 3.6 1.8 L Magnesium (1.6 - 2.3 mg/dL) 1.9 1.9 Total Bilirubin (0.2 - 1.3 mg/dL) 0.2 0.5 AST (14 - 36 U/L) 25 66 H ALT (9 - 52 U/L) 62 H 88 H Troponin I (< 0.11 ng/ml) 0.05 Albumin (3.5 - 5.0 g/dL) 3.1 L 3.5 Hematology CBC w Diff NO MAN DIFF REQ NO MAN DIFF REQ WBC (4.8 - 10.8 /CUMM) 8.4 8.9 RBC (4.20 - 5.40 /CUMM) 3.97 L 4.33 Hgb (12.0 - 16.0 G/DL) 10.6 L 11.6 L Hct (37 - 47 %) 32.8 L 35.9 L MCV (81.0 - 99.0 FL) 82.5 82.8 MCH (27.0 - 31.0 PG) 26.7 L 26.8 L RDW (11.5 - 14.5 %) 15.6 H 15.7 H Plt Count (130 - 400 /CUMM) 200 235 MPV (7.4 - 10.4 FL) 9.4 9.9 Gran % (42.2 - 75.2 %) 48.3 78.7 H Lymphocytes % (20.5 - 51.1 %) 41.4 16.6 L Monocytes % (1.7 - 9.3 %) 5.7 3.8 Eosinophils % (0 - 5 %) 4.1 0.5 Basophils % (0.0 - 2.0 %) 0.5 0.4 Absolute Granulocytes (1.4 - 6.5 /CUMM) 4.1 7.0 H Absolute Lymphocytes (1.2 - 3.4 /CUMM) 3.5 H 1.5 Absolute Monocytes (0.10 - 0.60 /CUMM) 0.5 0.3 Absolute Eosinophils (0.0 - 0.7 /CUMM) 0.3 0 Absolute Basophils (0.0 - 0.2 /CUMM) 0 0 PUBS MCHC (33.0 - 37.0 G/DL) 32.3 L 32.4 L 05/18 05/18 05/18 2244 1808 1645 Chemistry Lactic Acid Cancelled Troponin I (< 0.11 ng/ml) 0.08 Toxicology Urine Opiates Screen (>2000 NG/ML) > 4000.00 H Methadone Screen (>300 NG/ML) > 735 H Barbiturate Screen (>200 NG/ML) 62 Ur Phencyclidine Scrn (>25 NG/ML) < 6.00 Amphetamines Screen (>1000 NG/ML) 136 U Benzodiazepines Scrn (>200 NG/ML) 470 H Urine Cocaine Screen (>300 NG/ML) > 1000 H Urine Cannabis Screen (>50 NG/ML) < 5.00 Urines Urine Test NEGATIVE 05/18 05/18 1600 1545 Blood Gas pH (7.35 - 7.45 PH) 7.34 L pCO2 (35 - 45 TORR) 49 H pO2 (80 - 100 TORR) 97 HCO3 (21 - 28 MEQ/L) 26 ABG O2 Sat (Measured) (>96.0 %) 94.0 L P-50 (Temp Corrected) Y Carboxyhemoglobin (1.5 - 5.0 %) 2.6 O2 Concentration % 3L Temperature (97.0 - 100.0 FARH) 98.0 O2 Delivery Method N/C Chemistry Sodium (137 - 145 mmol/L) 140 Potassium (3.5 - 5.1 mmol/L) 5.1 Chloride (98 - 107 mmol/L) 100 Carbon Dioxide (22 - 30 mmol/L) 28 Anion Gap (5 - 16) 12 BUN (7 - 17 mg/dL) 8 Creatinine (0.5 - 1.0 mg/dL) 0.8 Estimated GFR (>60 ml/min) > 60 BUN/Creatinine Ratio (7 - 25 %) 10.0 Glucose (65 - 99 mg/dL) 88 Lactic Acid (0.7 - 2.1 mmol/L) 1.9 Calcium (8.4 - 10.2 mg/dL) 9.2 Total Bilirubin (0.2 - 1.3 mg/dL) 0.4 AST (14 - 36 U/L) 100 H ALT (9 - 52 U/L) 115 H Alkaline Phosphatase (<127 U/L) 100 Creatine Kinase (30 - 135 U/L) 350 H Troponin I (< 0.11 ng/ml) 0.12 *H Total Protein (6.3 - 8.2 g/dL) 7.5 Albumin (3.5 - 5.0 g/dL) 4.4 Globulin (1.9 - 4.2 gm/dL) 3.1 Albumin/Globulin Ratio (1.1 - 2.2 %) 1.4 Total Beta HCG (NEGATIVE) NEGATIVE Hematology CBC w Diff MAN DIFF ORDERED WBC (4.8 - 10.8 /CUMM) 15.2 H RBC (4.20 - 5.40 /CUMM) 4.75 Hgb (12.0 - 16.0 G/DL) 12.6 Hct (37 - 47 %) 39.0 MCV (81.0 - 99.0 FL) 82.1 MCH (27.0 - 31.0 PG) 26.6 L RDW (11.5 - 14.5 %) 15.5 H Plt Count (130 - 400 /CUMM) 289 MPV (7.4 - 10.4 FL) 9.0 Gran % (42.2 - 75.2 %) 83.3 H Lymphocytes % (20.5 - 51.1 %) 9.3 L Monocytes % (1.7 - 9.3 %) 6.6 Eosinophils % (0 - 5 %) 0.6 Basophils % (0.0 - 2.0 %) 0.2 Absolute Granulocytes (1.4 - 6.5 /CUMM) 12.7 H Absolute Lymphocytes (1.2 - 3.4 /CUMM) 1.4 Absolute Monocytes (0.10 - 0.60 /CUMM) 1.0 H Absolute Eosinophils (0.0 - 0.7 /CUMM) 0.1 Absolute Basophils (0.0 - 0.2 /CUMM) 0 Platelet Estimate (ADEQUATE) ADEQUATE Poikilocytosis 2+ Stomatocytes 2+ PUBS MCHC (33.0 - 37.0 G/DL) 32.4 L Miscellaneous Phlebotomy Draw Site LEFT RADIAL Toxicology Serum Alcohol (<10 MG/DL) < 10.0 Diffential Diagnosis: Opioid Use disorder PTSD Nicotine dependence, in recent remission Impression: Pt with hx of PTSD and OUD who used heroin after cessation eight years ago which resulted in accidental overdose. Pt used slightly less then used to use at height of heroin use leading to overdose. There is no evidence that this was a suicide attempt. There is no evidence for depression, pillo, or psychosis. The few TRS she does have from PTSD are well controlled. As such, pt is not an immient danger to self or others; however, she is at risk for accidental injury to self or others as recent relapse and history of substance use. Provisional Treatment Plan: - Pt needs her methadone 40mg, if not verified, please do so at [facility] in [place] , - Pt to f/u to [facility] for OUD and Dr. Espinoza for chronic pain/psychiatric management. Thank you the consult.
[2016-05-20 12:00] VITALS: BP 110/74
--- NOTE | 2016-05-20 15:02 | NUR ---
PT ASKED RN TO CALL [facility] AT [phone] FOR RIDE TO HOME. RN CALLED AND WAS TOLD [facility] WOULD BE 1 HR. PT GIVEN DISCHARGE PAPERWORK AND SAID SHE WOULD WAIT IN LOBBY FOR [facility]. [facility] CALLED TO NOTIFY THEY WERE HERE AND RN WENT TO LOBBY TO NOTIFY PATIENT. PATIENT NOT IN LOBBY AND NOT ON IMMEDIATE HOSPITAL GROUNDS. PT WAS ALERT & ORIENTED X3 AND INDEPENDENT, CLEARED BY PSYCH EARLIER THIS MORNING.
--- NOTE | 2016-08-06 12:43 | Discharge Summary ---
Visit Information Visit Dates Admission Date: 05/18/16 Discharge Date: 05/20/16 Hospital Course Course Attending Physician: UDAY MALDONADO MD Primary Care Physician: BEA VIDAL APRN Consulting Request: Consulting Specialty: Critical Care Hospital Course: This is a 35 yo lady with PMHX of morbid obesity, polysubstance abuse, history of IDVU on Methadone presented to [facility] in the setting of heroin overdose. According to ED physician upon presentation patient had respiratory failure, pinpoint nonreactive pupils she was considered confused and nonresponsive to verbal and painful stimulus. Patient was a started on Narcan drip after receiving 4 boluses of Narcan in the emergency room. Vital Signs Date Time Temp Pulse Resp B/P Pulse O2 O2 Flow FiO2 Ox Delivery Rate 05/18 1706 97.8 78 22 160/79 100 Nasal 2.0L Cannula 05/18 1651 81 14 161/85 100 Nasal Cannula 05/18 1629 97.8 77 14 146/83 100 Nasal 3.0L Cannula 05/18 1614 82 20 143/80 100 Nasal 2.0L Cannula 05/18 1509 97.4 91 18 130/71 100 Nasal 3.0L Cannula 05/18 1410 101 14 138/62 94 Room Air Physical Exam General Appearance Alert, Mild Distress, drowsy but arousable, uncooperative Skin No Breakdown HEENT Atraumatic Neck Supple, No JVD Lymphatic Axillary nl, Cervical nl Cardiovascular Normal S1, Normal S2, No Murmurs Lungs limited study; normal air movement Abdomen Soft Neurological slightly slurred speech but coherent and understandable, follows verbal commands, drowsy but arousable his Patrick to her name and pain Extremities bilateral 1+ pitting edema Labs 05/18/16 1600: Anion Gap 12, Estimated GFR > 60, BUN/Creatinine Ratio 10.0, Glucose 88, Lactic Acid 1.9, Calcium 9.2, Total Bilirubin 0.4, AST 100 H, ALT 115 H, Alkaline Phosphatase 100, Creatine Kinase Pending, Troponin I 0.12 *H, Total Protein 7.5, Albumin 4.4, Globulin 3.1, Albumin/Globulin Ratio 1.4, Total Beta HCG NEGATIVE, CBC w Diff MAN DIFF ORDERED, RBC 4.75, MCV 82.1, MCH 26.6 L, RDW 15.5 H, MPV 9.0, Gran % 83.3 H, Lymphocytes % 9.3 L, Monocytes % 6.6, Eosinophils % 0.6, Basophils % 0.2, Absolute Granulocytes 12.7 H, Absolute Lymphocytes 1.4, Absolute Monocytes 1.0 H, Absolute Eosinophils 0.1, Absolute Basophils 0, Platelet Estimate ADEQUATE, Poikilocytosis 2+, Stomatocytes 2+, PUBS MCHC 32.4 L, Serum Alcohol < 10.0 Urine tox was remarkable for elevated methadone level of greater than 735ng/ml, and elevated benzo level of 470ng/ml 05/18/16 1545: pH 7.34 L, pCO2 49 H, pO2 97, HCO3 26, ABG O2 Sat (Measured) 94.0 L, P-50 ( Temp Corrected) Y, Carboxyhemoglobin 2.6, O2 Concentration % 3L, Temperature 98.0, O2 Delivery Method N/C, Phlebotomy Draw Site LEFT RADIAL Patient's mentation and respiration was restored WNL after NARCAN boluses and initiation of drip. Pt was admitted to ICU, downgraded to gen med on day 2 and discharge on the third day. the following issues were addressed during hospital stay: #polysubstance overdose * U tox positive for opiates and positive for benzo and cocaine. Received Narcan boluses x4 and the drip which was stopped on 05/19/16. Pt responded well on Narcan Tx with regaining of mental status and repisratory status. Patient was evaluated by psych, was cleared for discharge .Methadone dose was confirmed ( methadone clinic at [facility] at [address], number ) . Pt continued to receivemethadone 40 mg day per her home dose. #Leukocytosis with left shift or bandemia stable vital signs (afebrile). Chest x-ray did not show any evidence of pneumonia or aspiration (pneumonitis. * Patient remianed afebrile with leukocytosis resolving, did not require ABX. #Elevated troponin: Demand ischemia. troponin downtrended 0.12>>0.08>>0.05 consistent with cocaine toxicity.Cardiac consultation was obtained, was cleared from cardiac standpoint #Slight increase in CK; no renal failure; possibly due to Coccain-induced rhabdo and dehydration * Improved with gentle hydration. Allergies: Coded Allergies: NSAIDS (Non-Steroidal Anti-Inflamma (RASH 03/15/16) prochlorperazine (From COMPAZINE) ("DYSTONIC" 03/15/16) Disposition Summary Disposition Principal Diagnosis: polysubstance overdose Additional Diagnosis: Elevated Troponins Discharge Disposition: home or self care Discharge Instructions General Discharge Information Code Status: Full Code Patient's Diet: regulrar diet Patient's Activity: As tolerated Follow-Up Instructions/Appts: - follow-up with your primary care physician within 1 week after discharge - follow up with [facility] phone #[phone] Medications at Discharge Discharge Medications: Continue taking these medications: Methadone Hydrochloride (Methadone HCl) 10 MG TABLET 4 Tablet ORAL DAILY Comments: Last Taken: 05/20/16 Time: 1100 Vortioxetine Hydrobromide (Trintellix) 5 MG TABLET 2 Tablet ORAL DAILY Comments: NOT TAKEN IN HOSPITAL Albuterol Sulfate (Proair Hfa) 90 MCG HFA.AER.AD 2 Puff Inhale through mouth EVERY 4-6 HOURS NEEDED as needed for BREATHING Qty = 9 Comments: NOT TAKEN IN HOSPITAL Metolazone (Metolazone) 5 MG TABLET 1 Tablet ORAL DAILY Qty = 30 Comments: NOT TAKEN IN HOSPITAL Cyclobenzaprine HCl (Cyclobenzaprine HCl) 10 MG TABLET 1 Tablet ORAL THREE TIMES DAILY Qty = 45 Comments: NOT TAKEN IN HOSPITAL Sofosbuvir/Velpatasvir (Epclusa 400 MG-100 MG Tablet) 400 MG-100 MG TABLET 1 Tablet ORAL Every night Qty = 14 Comments: NOT TAKEN IN HOSPITAL Furosemide (Furosemide) 20 MG TABLET 3 Tablet ORAL DAILY Comments: NOT TAKEN IN HOSPITAL Potassium Chloride (Potassium Chloride) 20 MEQ TAB.ER.PRT 1 Tablet ORAL DAILY Qty = 30 Comments: NOT TAKEN IN HOSPITAL Tramadol HCl (Tramadol HCl) 50 MG TABLET 1 Tablet ORAL EVERY 6 HOURS NEEDED as needed for PAIN Qty = 30 Comments: NOT TAKEN IN HOSPITAL Pregabalin (Lyrica) 150 MG CAPSULE 1 Capsule ORAL THREE TIMES DAILY Qty = 3 Budesonide/Formoterol Fumarate (Symbicort 160-4.5 Mcg Inhaler) 160 MCG-4.5 MCG/ ACTUATION HFA.AER.AD 2 Puff Inhale through mouth TWICE DAILY Qty = 10 Comments: NOT TAKEN IN HOSPITAL Butalb/Acetaminophen/Caffeine (Nquvsf-Mnlcawtb-Ccod 50-325-40) 50 MG-325 MG-40 MG TABLET 1 Tablet ORAL EVERY 6 HOURS NEEDED as needed for HEADACHE Qty = 30 Comments: NOT TAKEN IN HOSPITAL Nortriptyline HCl (Nortriptyline HCl) 25 MG CAPSULE 1 Capsule ORAL TWICE DAILY Qty = 1 Comments: NOT TAKEN IN HOSPITAL Pantoprazole Sodium (Pantoprazole Sodium) 40 MG TABLET.DR 1 Tablet ORAL DAILY Qty = 30 Comments: NOT TAKEN IN HOSPITAL Lurasidone HCl (Latuda) 80 MG TABLET 1 Tablet ORAL DAILY Qty = 30 Comments: NOT TAKEN IN HOSPITAL Clonazepam (Clonazepam) 1 MG TABLET 1 Tablet ORAL 4 TIMES A DAY Qty = 30 Comments: Last Taken: 05/30/16 Time: 1300 Topiramate (Topiramate) 100 MG TABLET 1 Tablet ORAL THREE TIMES DAILY Qty = 90 Comments: NOT TAKEN IN HOSPITAL Methylprednisolone. (Medrol) 4 MG TAB.DS.PK 1 Dose Pack ORAL As Directed Qty = 1 Instructions: 6 on day 1 then reduce by one tablet daily until gone Comments: NOT TAKEN IN HOSPITAL Pregabalin (Lyrica) 150 MG CAPSULE 1 Capsule ORAL THREE TIMES DAILY Qty = 42 Comments: Last Taken: 05/20/16 Time: 1000 Copies To: BEA VIDAL APRN
== END 2016-05-20 14:42 | DRG 816 ==
LOC: ENRESERVTM → ENRESERVDT → ERH 14:01 → ENPENDDIS 16:20 → ERHI 16:20 → CRI 21:12 → 2NA 05-19 14:00
PROVIDERS: Emergency Medicine; Student in an Organized Health Care Education/Training Program; ADMIT Internal Medicine
DX: T40.1X1A Poisoning by heroin, accidental (unintentional), initial encounter (principal); I24.8 Other forms of acute ischemic heart disease; Z68.43 Body mass index [BMI] 50.0-59.9, adult; F11.20 Opioid dependence, uncomplicated; E66.01 Morbid (severe) obesity due to excess calories; T40.5X1A Poisoning by cocaine, accidental (unintentional), initial encounter; T42.4X1A Poisoning by benzodiazepines, accidental (unintentional), initial encounter; Y92.009 Unspecified place in unspecified non-institutional (private) residence as the place of occurrence of the external cause; B18.2 Chronic viral hepatitis C; F43.10 Post-traumatic stress disorder, unspecified; Z86.718 Personal history of other venous thrombosis and embolism; Z87.891 Personal history of nicotine dependence
CPT/HCPCS: 2NASP; CCU; 36415; 80307; 81025; 82436; 87086; 93005; 93010; 96365; 96366; 96374; 99291; G0480; J0131; J1200; J1644; J2310; J3490